=== PATIENT | female | born 1930 | race Caucasian/White ===

== ENCOUNTER 2016-09-22 20:58 | Inpatient (IN) | payer MEDICARE, BC ==
[~2016-09-22] VITALS: Ht 162.6 cm; Wt 54.2 kg
--- NOTE | 2016-09-22 21:00 | NUR ---
Admission Note Patient arrived to unit with family from [facility]. Patient is alert and oriented to self only. Patient is tearful and anxious at this time. Patient is worried about her children and grandchildren. This nurse informed patient that her family is safe and that we need to focus on getting her well so she can go home. Patient responds that she knows her children and grandchildren are adults now and that they can take care of themselves but she cant stop worrying about them. Patient skin assessment shows no wounds or rashes but multiple bruising is present on torso and left thigh and leg (photo taken). Patient compliant with assessment. Patient lung sounds are clear, bowels are active in 4 quadrants and heart is regular. Pulses are palpable bilaterally and skin turgor is elastic. Patient belongings inventoried and documented, valuables sent to safe. Patient remains in her room at this time.
[2016-09-22 21:09] VITALS: BP 185/66
[2016-09-22] MEDS ORDERED: ACETAMINOPHEN 325 MG TABLET PO PRN (21:15)
[2016-09-22] MEDS ORDERED: MAGNESIUM HYDROXIDE 2,400 MG/30 ML ORAL.SUSP. PO PRN (21:15)
[2016-09-22] MEDS ORDERED: METHYL SALICYLATE/MENTHOL TOPICAL OINTMENT 29GM TUBE. TP PRN (21:15)
[2016-09-22] MEDS ORDERED: MAG HYDROX/AL HYDROX/SIMETH 30 ML ORAL.SUSP PO PRN ×2 (21:15→22:15)
[2016-09-22 22:08] LABS: BASO # 0.1 x10^3/uL (0.0-0.2); BASO % 1 % (0-3); EOS # 0.3 x10^3/uL (0.0-0.7); EOS % 5 % (0-3); HEMATOCRIT 28.4 % (36.0-47.0); HEMOGLOBIN 9.7 g/dL (12.0-15.5); LYMPH # 1.3 x10^3/uL (1.0-4.8); LYMPH % 19 % (24-48); MEAN CORPUSCULAR HEMOGLOBIN 32 pg (25-35); MEAN CORPUSCULAR HGB CONC 34 g/dL (31-37); MEAN CORPUSCULAR VOLUME 95 fL (79-100); MONO # 0.6 x10^3/uL (0.0-1.1); MONO % 10 % (0-9); NEUT # 4.5 x10^3uL (1.8-7.7); NEUT % 66 % (31-73); PLATELET COUNT 306 x10^3/uL (140-400); RED CELL DISTRIBUTION WIDTH 13.5 % (11.5-14.5); WHITE BLOOD COUNT 6.8 x10^3/uL (4.0-11.0)
[2016-09-22] MEDS ORDERED: SODI100G DT (22:11)
[2016-09-22] MEDS ORDERED: ATEN25TA PO (22:11)
[2016-09-22] MEDS ORDERED: MAGN2400 PO (22:11)
[2016-09-22] MEDS ORDERED: ALPR0.25 PO (22:11)
[2016-09-22] MEDS ORDERED: LEVO88TA2 PO (22:11)
[2016-09-22] MEDS ORDERED: CALC500T PO (22:11)
[2016-09-22] MEDS ORDERED: MELA3TAB2 PO (22:11)
[2016-09-22] MEDS ORDERED: BISA10SU2 RC (22:11)
[2016-09-22] MEDS ORDERED: POLY17PO3 PO (22:11)
[2016-09-22] MEDS ORDERED: WARF6TAB PO (22:11)
[2016-09-22] MEDS ORDERED: CYCL1DRO OU (22:11)
[2016-09-22] MEDS ORDERED: SODIUM CHLORIDE 5% OU (22:11)
[2016-09-22] MEDS ORDERED: LOSA100T6 PO (22:11)
[2016-09-22] MEDS ORDERED: TRAM50TA PO (22:11)
[2016-09-22] MEDS ORDERED: NITR100C63 PO (22:11)
[2016-09-22] MEDS ORDERED: LACT1CAP21 PO (22:11)
[2016-09-22] MEDS ORDERED: CARB1TAB2 PO (22:11)
[2016-09-22] MEDS ORDERED: MAG355OR12 PO (22:11)
[2016-09-22] MEDS ORDERED: PRAV20TA2 PO (22:11)
[2016-09-22] MEDS ORDERED: ACET-1574 PO (22:11)
[2016-09-22] MEDS ORDERED: PROP10DR3 OU (22:11)
[2016-09-22] MEDS ORDERED: SENN-87 PO (22:11)
[2016-09-22] MEDS ORDERED: ACET500T68 PO (22:11)
[2016-09-22] MEDS ORDERED: FESO4TAB PO (22:11)
[2016-09-22] MEDS ORDERED: CHOL500045 PO (22:11)
[2016-09-22] MEDS ORDERED: CITA40TA5 PO (22:12)
[2016-09-22 22:15] LABS: ALBUMIN 2.8 g/dL (3.4-5.0); ALBUMIN/GLOBULIN RATIO 0.7 (1.0-1.7); CALCIUM 8.7 mg/dL (8.5-10.1); CREATININE 1.3 mg/dL (0.6-1.0); GFR 38.7; MAGNESIUM 1.8 mg/dL (1.8-2.4); POTASSIUM 4.6 mmol/L (3.5-5.1); TOTAL BILIRUBIN 0.6 mg/dL (0.2-1.0); TOTAL PROTEIN 6.6 g/dL (6.4-8.2)
[2016-09-22] MEDS ORDERED: BISACODYL 10 MG SUPP.RECT RC PRN (22:15)
[2016-09-22] MEDS ORDERED: ACETAMINOPHEN 500 MG TABLET PO PRN (22:15)
[2016-09-22] MEDS ORDERED: NON FORMULARY ITEM (Magnesium Hydroxide (Milk Of Magnesia) 2,400 MG) PO PRN (22:15)
[2016-09-22] MEDS ORDERED: CALCIUM CARBONATE 500 MG TAB.CHEW PO PRN (22:15)
[2016-09-22] MEDS ORDERED: traMADol 50 MG TABLET PO PRN (22:15)
[2016-09-22] MEDS ORDERED: NON FORMULARY ITEM (Acetaminophen Er 650 MG) PO PRN (22:15)
[2016-09-22] MEDS ORDERED: POLYVINYL ALCOHOL 1.4% OPHTH SOLUTION 15ML BOTTLE. OU PRN (23:00)
--- NOTE | 2016-09-23 02:51 | NUR ---
Nursing Note Patient complaining of leg pain bilaterally. Patient requesting PRN pain Medication. Patient given PRN Tylenol per PRN order.
[2016-09-23 06:24] VITALS: BP 154/67
[2016-09-23] MEDS: cycloSPORINE 0.05% OPTH 1 DROP DROPERETTE OU SCH ×2 (08:01→19:54)
[2016-09-23] MEDS: LACTOBACILLUS RHAMNOSUS GG 1 CAPSULE. PO SCH (08:01)
[2016-09-23] MEDS: LOSARTAN 50 MG TABLET. PO SCH (08:02)
[2016-09-23] MEDS: CHOLECALCIFEROL (VITAMIN D3) 1,000 UNIT TABLET PO SCH (08:02)
[2016-09-23] MEDS: CARBIDOPA/LEVODOPA 25/100MG TABLET PO SCH ×2 (08:02→19:55)
[2016-09-23] MEDS: OXYBUTYNIN CHLORIDE 5 MG TABLET PO SCH ×2 (08:03→19:54)
[2016-09-23] MEDS: ATENOLOL 25 MG TABLET PO SCH (08:03)
[2016-09-23] MEDS: PRAVASTATIN 20 MG TABLET. PO SCH (08:03)
[2016-09-23] MEDS: LEVOTHYROXINE 88 MCG TABLET PO SCH (08:03)
[2016-09-23] MEDS: NITROFURANTOIN MONOHYD/M-CRYST 100 MG CAPSULE. PO SCH ×2 (08:03→19:54)
--- NOTE | 2016-09-23 08:40 | NUR ---
Behavior Intervention Response and Plan: BIRP Note: Behavior: Assumed Care of patient, patient located in Dining Room at shift change. Patient exhibited the following behavior Disorganized, Anxious, Restless. Brief assessment on rounds of vital signs, medication needs, lab studies, and pain. Treatment plan problems 1 & 2. Intervention: Patient assessed and the following interventions initiated safety checks 15 Minute Checks Cognitive Assessment , Head to toe Assessment , Medications. Response: After interactions and interventions patient responded in the following manner, Calm , Appropriate ,Compliant. Continue to assess behaviors and condition will continue to monitor throughout the shift as needed. Patient educated on ADL's, and hand hygiene. 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 Continue to assess patient for changes in above assessment. Monitor for medication needs, pain, and safety concerns. Hourly rounding performed to ensure safe environment.
[2016-09-23] MEDS ORDERED: CITALOPRAM 20 MG TABLET. PO SCH (09:00)
[2016-09-23] MEDS ORDERED: SODIUM FLUORIDE DT SCH (09:00)
--- NOTE | 2016-09-23 09:10 | NUR ---
THERAPEUTIC RECREATION GROUP NOTE TITLE :Music Bingo ACTIVITY : Music, Cognitive Stimulation GOAL : Increase socialization, elevate mood, stimulate memory, Maintain or improve cognitive functioning DURATION : 60 minutes RESPONSE : Full participation. Pt. was alert and engaged the entire time. She needed assistance finding titles on her card but she placed the bingo chip accurately. She asked for help a couple times. She had tear-filled eyes towards the beginning but played the entire session.
[2016-09-23] MEDS ORDERED: SENN8.6T11 PO (11:22)
--- NOTE | 2016-09-23 13:10 | NUR ---
Patient sitting in day room, she is asking many questions about how long she'll be here, and what's the plan. informed patient that the doctors will be here to evaluate her and form a plan of care, and that most likely she will be here about 10 days. Patient states that she is going to soon, but she is ok with that. Informed her that she is fairly healthy and would not be dying soon. She gave no response to that but asked what the plan was again. Will monitor for behaviours.
[2016-09-23 13:34] LABS: THYROID STIM HORMONE (TSH) 4.737 uIU/mL (0.358-3.740)
[2016-09-23] MEDS: ALPRAZolam 0.25 MG TABLET PO PRN (13:39)
--- NOTE | 2016-09-23 13:39 | NUR ---
Patient is showing signs of increased anxiety, repeatedly asking what she's waiting for, what's going to happen, and stating that she's ready to soon, no suicidal ideations at this time. PRN meds provided per eMAR, will continue to monitor.
--- NOTE | 2016-09-23 14:15 | NUR ---
THERAPEUTIC RECREATION GROUP NOTE TITLE :Accomplishment Coins and Categories ACTIVITY : Leisure Awareness and Values GOAL : Educate on importance of identifying our accomplishments and values in our personal, professional and leisure life. Educate on strategies for coping with change. Educate on benefits of leisure alternatives to address needs of loneliness, self esteem, sense of adventure, altered mood, etc. DURATION : 135 Minutes RESPONSE : Full participation. Pt. participated in the first half of the session. She did not really understand the point of the group and was tearful off and on. She was able to answer questions and list accomplishments in her personal, professional and leisure life with more one on one attention to help her stay focus. She left the group to use the restroom and did not return.
[2016-09-23] MEDS ORDERED: WARFARIN 6 MG TABLET. PO SCH (16:00)
--- NOTE | 2016-09-23 16:15 | NUR ---
Psychosocial Assessment completed w/Pt. in Pt's room. Pt. was born and raised in [place], [place] w/1 brother and 2 sisters. Pt. stated her family was not close, often feeling alienating from family due to her stuttering diagnosis. Pt. completed HS and began working for [employer] where she met her named Andrea. Pt. was for 60+ years until he passed in 2001. Pt. stated their marriage was not a loving marriage and she only stayed because of financial reasons. Pt. had 4 children, although the youngest son named Clifton passed in 2010. Pt. self reports likely suffering from Depression since childhood. Pt. has had no other Psych admits and did not begin seeing a therapist until admit to [facility] 2 years ago. Pt. has a history of making Suicidal Ideation statements, but will even self report she has no plan or no ability to follow thru w/statements. Pt. has no history of alcohol or substance abuse. GOALS: Pt stated, "I just want to feel good again". 1. Family support 2. Willingness to work the program
[2016-09-23 16:29] VITALS: BP 167/73
[2016-09-23 17:09] LABS: T3 TOTAL 57 ng/dL (71-180); THYROXINE 6.6 ug/dL (4.5-12.0)
--- NOTE | 2016-09-23 19:50 | PDOC ---
Exam Kj Demential Exam: Kj Note: Please also refer to the separate dictated note~for this date of service dictated separately.~Patient seen individually. Discussed the patient with Nursing staff reviewed the chart.~Reviewed interim history and current functioning. Reviewed vital signs,~Labs/ Radiology~and current medications noted below. Continue current treatment with the changes noted in the dictated addendum note Assessment: Vital Signs: Vital Signs Date Time Temp Pulse Resp B/P (MAP) Pulse Ox O2 Delivery O2 Flow Rate FiO2 09/23/16 16:29 97.9 60 20 167/73 (104) 99 Labs: Laboratory Tests Test 09/22/16 21:45 09/23/16 07:02 White Blood Count 6.8 x10^3/uL (4.0-11.0) Red Blood Count 3.00 x10^6/uL (3.50-5.40) L Hemoglobin 9.7 g/dL (12.0-15.5) L Hematocrit 28.4 % (36.0-47.0) L Mean Corpuscular Volume 95 fL (79-100) Mean Corpuscular Hemoglobin 32 pg (25-35) Mean Corpuscular Hemoglobin Concent 34 g/dL (31-37) Red Cell Distribution Width 13.5 % (11.5-14.5) Platelet Count 306 x10^3/uL (140-400) Neutrophils (%) (Auto) 66 % (31-73) Lymphocytes (%) (Auto) 19 % (24-48) L Monocytes (%) (Auto) 10 % (0-9) H Eosinophils (%) (Auto) 5 % (0-3) H Basophils (%) (Auto) 1 % (0-3) Neutrophils # (Auto) 4.5 x10^3uL (1.8-7.7) Lymphocytes # (Auto) 1.3 x10^3/uL (1.0-4.8) Monocytes # (Auto) 0.6 x10^3/uL (0.0-1.1) Eosinophils # (Auto) 0.3 x10^3/uL (0.0-0.7) Basophils # (Auto) 0.1 x10^3/uL (0.0-0.2) Sodium Level 135 mmol/L (136-145) L Potassium Level 4.6 mmol/L (3.5-5.1) Chloride Level 102 mmol/L (98-107) Carbon Dioxide Level 26 mmol/L (21-32) Anion Gap 7 (6-14) Blood Urea Nitrogen 28 mg/dL (7-20) H Creatinine 1.3 mg/dL (0.6-1.0) H Estimated GFR (Cockcroft-Gault) 38.7 BUN/Creatinine Ratio 22 (6-20) H Glucose Level 90 mg/dL (70-99) Calcium Level 8.7 mg/dL (8.5-10.1) Magnesium Level 1.8 mg/dL (1.8-2.4) Iron Level 67 ug/dL (50-170) Total Iron Binding Capacity 270 ug/dL (250-450) Iron Saturation 25 % (15-34) Total Bilirubin 0.6 mg/dL (0.2-1.0) Aspartate Amino Transferase (AST) 24 U/L (15-37) Alanine Aminotransferase (ALT) 12 U/L (14-59) L Alkaline Phosphatase 115 U/L (46-116) Total Protein 6.6 g/dL (6.4-8.2) Albumin 2.8 g/dL (3.4-5.0) L Albumin/Globulin Ratio 0.7 (1.0-1.7) L Triglycerides Level 142 mg/dL (0-150) Cholesterol Level 179 mg/dL (0-200) LDL Cholesterol, Calculated 96 mg/dL (0-100) VLDL Cholesterol, Calculated 28 mg/dL (0-40) Non-HDL Cholesterol Calculated 124 mg/dL (0-129) HDL Cholesterol 55 mg/dL (40-60) Cholesterol/HDL Ratio 3.0 25-Hydroxy Vitamin D Total Pending Thyroid Stimulating Hormone (TSH) 4.737 uIU/mL (0.358-3.740) Thyroxine (T4) 6.6 ug/dL (4.5-12.0) Total Triiodothyronine (TT3) 57 ng/dL (71-180) L RPR Titer Additional Testing Pending Prothrombin Time 36.8 SEC (9.4-11.4) H Prothrombin Time INR 3.6 (0.9-1.1) H Current Medications: Meds: Current Medications Acetaminophen (Tylenol) 650 mg PRN Q6HRS PRN PO PAIN / TEMP Last administered on 09/23/16 02:46; Start 09/22/16 at 21:15 Multi-Ingredient Ointment (Analgesic Formoso) 1 toney PRN QID PRN TP MUSCLE PAIN; Start 09/22/16 at 21:15 Al Hydroxide/Mg Hydroxide (Mylanta Plus Xs) 15 ml PRN AFTMEALHC PRN PO DYSPEPSIA; Start 09/22/16 at 21:15; Status Cancel Magnesium Hydroxide (Milk Of Magnesia) 2,400 mg PRN QHS PRN PO CONSTIPATION; Start 09/22/16 at 21:15 Alprazolam (Xanax) 0.25 mg PRN TID PRN PO ANXIETY / AGITATION Last administered on 09/23/16 13:39; Start 09/22/16 at 22:15 Citalopram Hydrobromide (CeleXA) 40 mg DAILY PO Last administered on 09/23/16 08:02; Start 09/23/16 at 09:00; Stop 09/23/16 at 18:27; Status DC Acetaminophen (Tylenol) 500 mg PRN TID PRN PO PAIN / TEMP; Start 09/22/16 at 22 :15 Atenolol (Tenormin) 25 mg DAILY PO Last administered on 09/23/16 08:03; Start 09/23/16 at 09:00 Bisacodyl (Dulcolax Supp) 10 mg PRN DAILY PRN RC CONSTIPATION; Start 09/22/16 at 22:15 Calcium Carbonate/ Glycine (Tums) 500 mg PRN TID PRN PO HEARTBURN / GAS; Start 09/22/16 at 22:15 Carbidopa/Levodopa (Sinemet 25/100) 1 tab BID PO Last administered on 08:02; Start 09/23/16 at 09:00 Cyclosporine (Restasis) 1 drop BID OU Last administered on 09/23/16 08:01; Start 09/23/16 at 09:00 Levothyroxine Sodium (Synthroid) 88 mcg DAILYAC PO Last administered on 08:03; Start 09/23/16 at 07:30 Al Hydroxide/Mg Hydroxide (Mylanta Plus Xs) 15 ml PRN TID PRN PO INDIGESTION; Start 09/22/16 at 22:15 Polyethylene Glycol (miraLAX) 8.5 gm HS PO ; Start 09/23/16 at 21:00 Pravastatin Sodium (Pravachol) 20 mg DAILY PO Last administered on 09/23/16 08 :03; Start 09/23/16 at 09:00 Sennosides (Senna) 8.6 mg HS PO ; Start 09/23/16 at 21:00 Tramadol HCl (Ultram) 50 mg PRN Q6HRS PRN PO PAIN; Start 09/22/16 at 22:15 Warfarin Sodium (Coumadin) 6 mg DAILY16 PO ; Start 09/23/16 at 16:00; Stop 09/23 at 16:14; Status DC Non-Formulary Medication 650 mg PRN TID PRN PO PAIN / TEMP; Start 09/22/16 at 22:15; Status UNV Vitamin D (Vitamin D3) 5,000 unit DAILY PO Last administered on 09/23/16 08:02 ; Start 09/23/16 at 09:00 Oxybutynin Chloride (Ditropan) 5 mg BID PO Last administered on 09/23/16 08:03 ; Start 09/23/16 at 09:00 Lactobacillus Rhamnosus (Culturelle) 1 cap DAILY PO Last administered on 08:01; Start 09/23/16 at 09:00; Stop 09/24/16 at 10:00 Losartan Potassium (Cozaar) 100 mg DAILY PO Last administered on 09/23/16 08: 02; Start 09/23/16 at 09:00 Non-Formulary Medication 2,400 mg PRN DAILY PRN PO CONSTIPATION; Start at 22:15; Status UNV Melatonin 3 mg HS PO ; Start 09/23/16 at 21:00 Nitrofurantoin Macrocrystals (Macrobid) 100 mg BID PO Last administered on 09/23 08:03; Start 09/23/16 at 09:00; Stop 09/25/16 at 22:00 Artificial Tears (Artificial Tears) 1 drop PRN Q4HRS PRN OU DRY EYE; Start at 23:00 Non-Formulary Medication 1 toney DAILY DT ; Start 09/23/16 at 09:00; Status UNV Sodium Chloride (Kelly) 0.25 inch HS OU ; Start 09/23/16 at 21:00 Warfarin Sodium (Coumadin Per Physician) 1 each PRN DAILY PRN MC SEE COMMENTS; Start 09/22/16 at 23:00 Duloxetine HCl (Cymbalta) 30 mg DAILY PO ; Start 09/24/16 at 09:00 Mirtazapine (Remeron) 7.5 mg QHS PO ; Start 09/23/16 at 21:00 Active Scripts Active Reported Citalopram Hbr (Citalopram Hydrobromide) 40 Mg Tablet 40 Mg PO DAILY Xanax (Alprazolam) 0.25 Mg Tablet 0.25 Mg PO PRN TID PRN Macrodantin (Nitrofurantoin Macrocrystal) 100 Mg Capsule 100 Mg PO BID 3 Days Culturelle (Lactobacillus Rhamnosus Gg) 1 Each Capsule 1 Each PO DAILY 2 Days Acetaminophen Er (Acetaminophen) 650 Mg Tablet.er 650 Mg PO PRN TID PRN Toviaz (Fesoterodine Fumarate) 4 Mg Tab.er.24h 4 Mg PO DAILY Systane Ultra 0.4-0.3% Eye Drp (Propylene Glycol/Peg 400) 10 Ml Drops 1 Drop OU PRN Q4HRS PRN Bisacodyl 10 Mg Supp.rect 10 Mg RC PRN DAILY PRN Coumadin (Warfarin Sodium) 6 Mg Tablet 6 Mg PO DAILY Senna Lax (Sennosides) 8.6 Mg Tablet 8.6 Mg PO HS Polyethylene Glycol 3350 17 Gm Powd.pack 0.5 Packet PO HS PRN Maalox Maximum Strength Susp (Mag Hydrox/Al Hydrox/Simeth) 355 Ml Oral.susp 15 Ml PO PRN TID PRN Acetaminophen 500 Mg Tablet 500 Mg PO PRN TID PRN Tramadol Hcl (Tramadol HCl) 50 Mg Tablet 50 Mg PO PRN Q6HRS PRN Synthroid (Levothyroxine Sodium) 88 Mcg Tablet 88 Mcg PO DAILYAC Melatonin 3 Mg Tablet 3 Mg PO HS Prevident 5000 (Sodium Fluoride) 100 Ml Gel..ml. 1 Toney DT DAILY Calcium Carbonate 500 Mg Tablet 500 Mg PO PRN TID PRN Milk Of Magnesia (Magnesium Hydroxide) 2,400 Mg/10 Ml Oral.susp 2,400 Mg PO PRN DAILY PRN Restasis (Cyclosporine) 1 Each Droperette 1 Each OU BID Losartan Potassium 100 Mg Tablet 100 Mg PO DAILY Sinemet 25-100 Mg Tablet (Carbidopa/Levodopa) 1 Each Tablet 1 Each PO BID Vitamin D (Cholecalciferol (Vitamin D3)) 5,000 Unit Tablet 5,000 Unit PO DAILY [sodium chloride 5%] Oint..gm. 1 Toney OU HS Pravastatin Sodium 20 Mg Tablet 20 Mg PO DAILY Atenolol 25 Mg Tablet 25 Mg PO DAILY ARIANE WASHBURN MD Sep 23, 2016 19:50
[2016-09-23] MEDS: SODIUM CHLORIDE 5% OPHTH OINTMENT 3.5GM TUBE. OU SCH (19:54)
[2016-09-23] MEDS: SENNOSIDES 8.6 MG TABLET PO SCH (19:57)
[2016-09-23] MEDS: MELATONIN 3 MG TABLET PO SCH (19:57)
[2016-09-23] MEDS: POLYETHYLENE GLYCOL 3350 17 GM PACKET. PO SCH (19:57)
[2016-09-23] MEDS: MIRTAZAPINE 7.5 MG TABLET. PO SCH (19:57)
[2016-09-23 23:40] VITALS: BP 180/78
[2016-09-24 00:13] VITALS: BP 110/68
--- NOTE | 2016-09-24 00:16 | HP ---
ADMIT DATE: 09/23/2016 PSYCHIATRIC ADMISSION HISTORY AND EVALUATION This note covers elements not covered in my initial note of 09/23/2016. IDENTIFYING DATA: The patient is an 85-year-old female referred to us from [facility] in [place], [place] by Dr. Christian Elliott, her psychiatrist and Dr. Galicia, her primary care physician on account of worsening symptoms of depression, paranoia, anxiety. Reportedly, the patient was scared to be left alone, had uncontrollable crying, making repeated statements of wanting to and to kill herself. No plans or attempts were noted, however. She had been placed on one-on-one status to prevent her hurting herself at the facility. On 09/20/2016, she was sent to [facility], found to be medically stable, treated on Xanax, returned back to the facility. Symptoms only worsened. There were concerns about her safety at the facility requiring one-on-one status and then referral to us for inpatient psychiatric stabilization. CHIEF COMPLAINT: "I have been very depressed. I have had multiple people in my family . Nothing is going to get better. I feel hopeless." HISTORY OF PRESENT ILLNESS: The patient has a history of significant worsening of depression, paranoia, anxiety, and uncontrollable crying as noted above. She has been extremely anxious and cannot be left alone, making suicidal statements, but no plan or attempts have been noted. No clear history of bipolar disorder. She has had some short term memory deficits. PAST PSYCHIATRIC HISTORY: As above. PAST MEDICAL HISTORY: Parkinson's disease, chronic kidney disease, and atrial fibrillation, coronary artery disease, pacemaker, hypertension, vascular dementia. CODE STATUS: DNR. ALLERGIES: CIPRO, SULFA. DIET: Regular. Takes her medications . Ambulates with single assistance with a walker. CURRENT PSYCHOTROPICS: Xanax 0.25 mg q.8 hours p.r.n. anxiety and Celexa 40 mg a day. SOCIAL HISTORY: No history of alcohol, drug abuse, physical, sexual or elder abuse. She is not known to be a perpetrator. MENTAL STATUS EXAMINATION: The patient was seen individually on evening of 09/23/2016 for this evaluation. She is oriented to herself and situation, knew she arrived here last evening, confused about the date. Speech is coherent. Thought processes are goal directed. Mood is depressed. Affect is mood congruent. She is somewhat paranoid, suspicious. Attention span short. Language function intact. She denies active suicidal ideation, but admits to feeling hopeless, helpless, worthless, wanting to . LABORATORY DATA: Reviewed. REVIEW OF SYSTEMS: Ambulation impaired. No CV, , pulmonary, eye, ENT system symptoms on review. IMPRESSION: Major depressive disorder, recurrent, severe with psychotic features; anxiety disorder, unspecified; impulse control disorder, unspecified. Rest diagnosis as above including mild cognitive impairment versus major neurocognitive disorder, vascular with depression, delusions. TREATMENT PLAN: Admit to the geropsychiatry unit at [facility]. I will see the patient daily individually from a psychiatric standpoint. Medical followup will be requested Dr. Vizcaino/Dr. Javed. We will observe the patient's baseline. She is on Celexa 40 mg a day. At her age, this does not seem appropriate consequent to cardiac side effects. We will change the Celexa to Cymbalta 30 mg a day. She slept very poorly previous evening. We will start Remeron 7.5 mg at bedtime with a plan to increase the Cymbalta and to consider Seroquel to augment the Cymbalta and as an atypical antipsychotic. MAN Ruben WASHBURN MD DR: MARCIAL/reynaldo JOB#: [id number] / [id number]
[2016-09-24 04:13] LABS: HEMOGLOBIN A1C 5.5 % (4.8-5.6)
--- NOTE | 2016-09-24 04:53 | NUR ---
Behavior Intervention Response and Plan: BIRP Note: Behavior: Assumed Care of patient, patient located in Hallway at shift change. Patient exhibited the following behavior Restless, Disorganized, Anxious. Brief assessment on rounds of vital signs, medication needs, lab studies, and pain. Treatment plan problems 1-2. Intervention: Patient assessed and the following interventions initiated safety checks 15 Minute Checks Cognitive Assessment , Medications , Oral Hydration. Response: After interactions and interventions patient responded in the following manner, Disorganized , Compliant ,Cooperative. Continue to assess behaviors and condition will continue to monitor throughout the shift as needed. Patient educated on ADL's, and hand hygiene. Plan: Continue to monitor Master Treatment Plan for patient's progress toward short term goals of Decreased Agitation, Decreased Anxiety, mcc goals to return to previous living setting vs placement. Continue to assess patient for changes in above assessment. Monitor for medication needs, pain, and safety concerns. Hourly rounding performed to ensure safe environment.
[2016-09-24 05:51] VITALS: BP 138/78
[2016-09-24] MEDS: LEVOTHYROXINE 88 MCG TABLET PO SCH (07:59)
[2016-09-24] MEDS: LOSARTAN 50 MG TABLET. PO SCH (07:59)
[2016-09-24] MEDS: NITROFURANTOIN MONOHYD/M-CRYST 100 MG CAPSULE. PO SCH ×2 (07:59→19:26)
[2016-09-24] MEDS: OXYBUTYNIN CHLORIDE 5 MG TABLET PO SCH ×2 (08:00→19:26)
[2016-09-24] MEDS: cycloSPORINE 0.05% OPTH 1 DROP DROPERETTE OU SCH ×2 (08:00→19:26)
[2016-09-24] MEDS: PRAVASTATIN 20 MG TABLET. PO SCH (08:00)
[2016-09-24] MEDS: CARBIDOPA/LEVODOPA 25/100MG TABLET PO SCH ×2 (08:00→19:26)
[2016-09-24] MEDS: CHOLECALCIFEROL (VITAMIN D3) 1,000 UNIT TABLET PO SCH (08:00)
[2016-09-24] MEDS: ATENOLOL 25 MG TABLET PO SCH (08:00)
[2016-09-24] MEDS: LACTOBACILLUS RHAMNOSUS GG 1 CAPSULE. PO SCH (08:03)
[2016-09-24] MEDS: DULoxetine HCL 30 MG CAPSULE.DR PO SCH (08:03)
--- NOTE | 2016-09-24 09:45 | NUR ---
Behavior Intervention Response and Plan: BIRP Note: Behavior: Assumed Care of patient, patient located in Patient Room at shift change. Patient exhibited the following behavior Anxious, Disorganized, Interactive. Brief assessment on rounds of vital signs, medication needs, lab studies, and pain. Treatment plan problems 1 & 2. Intervention: Patient assessed and the following interventions initiated safety checks 15 Minute Checks Cognitive Assessment , Head to toe Assessment , Medications. Response: After interactions and interventions patient responded in the following manner, Calm , Appropriate ,Compliant. Continue to assess behaviors and condition will continue to monitor throughout the shift as needed. Patient educated on ADL's, and hand hygiene. 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 Continue to assess patient for changes in above assessment. Monitor for medication needs, pain, and safety concerns. Hourly rounding performed to ensure safe environment.
--- NOTE | 2016-09-24 12:32 | CONS ---
DATE OF CONSULTATION: 09/23/2016 REASON FOR CONSULTATION: Medical management. HISTORY OF PRESENT ILLNESS: The patient is an 85-year-old female patient, resident at [facility], who was admitted with a complaint of severe depression, paranoia, anxiety, stated that she is feeling lonely, scared to be left alone, uncontrollable crying, all this in a background of major depressive disorder. She is here for inpatient psychiatric stabilization. On questioning her about from feeling depressed and lonely, denied any other complaint. PAST MEDICAL HISTORY: Significant for Parkinson's disease, chronic kidney disease, atrial fibrillation, coronary artery disease, hypertension, vascular dementia and major depressive disorder. PAST SURGICAL HISTORY: Significant for pacemaker placement, bilateral cataract extraction. ALLERGIES: She is allergic to SULFA and CIPROFLOXACIN. MEDICATIONS: She is currently on following medications: Acetaminophen 500 mg 3 times a day, acetaminophen 650 mg 3 times a day as needed, alprazolam 0.25 mg 3 times a day, atenolol 25 mg daily, bisacodyl 10 mg suppositories daily, calcium carbonate 500 mg 3 times a day, carbidopa/levodopa 25/100 one tablet twice a day, cholecalciferol 5000 international units once a day, citalopram hydrobromide 40 mg daily, cyclosporine for Restasis 1 drop to both eyes twice a day, Toviaz 4 mg daily for bladder spasm, lactobacillus rhamnosus 1 p.o. daily, levothyroxine sodium 88 mcg tablet once a day, losartan potassium 100 mg once a day, Maalox 15 mL 3 times a day as needed, milk of magnesia 30 mL p.o. daily p.r.n. for constipation, melatonin 3 mg at bedtime for insomnia. She is on Macrodantin 100 mg p.o. b.i.d. for 3 days, polyethylene glycol 17 grams daily p.r.n. for constipation, pravastatin 20 mg daily, propylene glycol for Systane Ultra eyedrops 1 drop to both eyes every 4 hours, senna 1 tablet at bedtime, 5000 one application daily, tramadol 50 mg every 6 hours and warfarin 6 mg daily. REVIEW OF SYSTEMS: As per history of present illness. PHYSICAL EXAMINATION GENERAL: When I examined her, she was sitting comfortably in her chair, in no apparent distress. She was slightly pale, but no jaundice, cyanosis or thyromegaly. No jugular venous distention. No limb edema. VITAL SIGNS: Heart rate 60, blood pressure was 154/67, temperature was 97.5, respiratory rate was 18 and oxygen saturation was 99% on room air. HEAD, EYES, EARS, NOSE AND THROAT: Showed normocephalic, atraumatic. NECK: Supple. HEART: Showed normal first and second heart sounds with no gallop, rub or murmur. CHEST: Clear to auscultation. No crepitation or rhonchi. ABDOMEN: Distended, soft, nontender. NEUROLOGIC: She was awake, alert, somewhat confused; however, without any lateralizing sign. All her cranial nerves intact. EXTREMITIES: She moves extremities without difficulty. She ambulates with a walker. LABORATORY DATA: Showed a serum sodium 135, potassium 4.6, chloride 102, bicarbonate 26, anion gap of 7, BUN 28, creatinine 1.3, estimated GFR was 39 mL per minute. Her glucose 90, calcium was 8.7, magnesium was 1.8. Serum iron was 67, TIBC was 270 and percent saturation was 25%. Her total bilirubin was 0.6. AST, ALT, alkaline phosphatase were normal. Total protein was 6.6, albumin 2.8. Serum triglycerides were 142. Total cholesterol 179, LDL was 96, VLDL was 28, and HDL was 55. Cholesterol to HDL cholesterol ratio was 3. TSH was slightly high at 4.737. Her white cell count was 9600, hemoglobin 9.7, hematocrit 28.4, MCV 95 and platelet count 306,000. Her prothrombin time was 36.8, INR of 3.6. IMPRESSION: In summary, this is an 85-year-old female patient, a resident at [facility], who was admitted on the basis of severe depression, paranoia, anxiety, scared to be left alone, uncontrollable crying, all this in a background of major depressive disorder. She has multiple medical problems including Parkinson's disease, chronic kidney disease, AFib, coronary artery disease, hypertension. She has had pacemaker placed. She is on Coumadin and INR is supratherapeutic at 6.8 and 3.6. Her BUN was 28, creatinine 1.3, and estimated GFR was 38 mL per minute. She has normochromic normocytic anemia with hemoglobin 9.7, hematocrit 28.4. She is also known to have hypothyroidism, hyperlipidemia. Her vital signs are mostly stable. All in all, she seemed to be medically stable. I will continue on all these medications for the time being. I will follow all her labs that are still pending and make any necessary recommendations. Thank you, Dr. Braun for allowing me to participate in the care of this patient. RUSSELL TORRES MD DR: ROXY/reynaldo JOB#: [id number] / [id number]
--- NOTE | 2016-09-24 13:00 | NUR ---
SW spoke w/PT's son/DPOA, Mahendra to verify PSA information obtained and to learn more about MH history. Mahendra confirmed Pt. has not had previous admits to a Psych facility. Pt. has struggled w/depression and has made suicidal ideation type comments, but has never expressed a plan or attempted to carry out the thoughts. Family hired Private Therapist, Fidelia Bertrand at [phone] in [place] to go to [facility] and meet w/Pt. at least monthly. Pt. also receives Psych services from Psychiatrist Dr. Dozier. Mahendra states there is not a significant trigger to help explain the current "tail spin" Pt. has been in for the past 2 weeks. They initially thought it may be related to an UTI, but upon admit to [facility], test was negative.
[2016-09-24 16:10] VITALS: BP 161/65
--- NOTE | 2016-09-24 18:00 | NUR ---
THERAPEUTIC RECREATION GROUP NOTE TITLE :Gwendolyn Fuller- LED/REPORTED by CNAs ACTIVITY : Activities and Games GOAL : Increase alertness, focus, morale, decrease stress DURATION : 35 Minutes RESPONSE : No participation.
[2016-09-24] MEDS: MIRTAZAPINE 7.5 MG TABLET. PO SCH (19:25)
[2016-09-24] MEDS: SENNOSIDES 8.6 MG TABLET PO SCH (19:25)
[2016-09-24] MEDS: MELATONIN 3 MG TABLET PO SCH (19:25)
[2016-09-24] MEDS: POLYETHYLENE GLYCOL 3350 17 GM PACKET. PO SCH (19:26)
[2016-09-24] MEDS: SODIUM CHLORIDE 5% OPHTH OINTMENT 3.5GM TUBE. OU SCH (19:27)
--- NOTE | 2016-09-24 19:50 | PDOC ---
Exam Kj Demential Exam: Kj Note: Please also refer to the separate dictated note~for this date of service dictated separately.~Patient seen individually. Discussed the patient with Nursing staff reviewed the chart.~Reviewed interim history and current functioning. Reviewed vital signs,~Labs/ Radiology~and current medications noted below. Continue current treatment with the changes noted in the dictated addendum note Assessment: Vital Signs: Vital Signs Date Time Temp Pulse Resp B/P (MAP) Pulse Ox O2 Delivery O2 Flow Rate FiO2 09/24/16 16:10 98.3 60 20 161/65 (97) 97 I&O Intake and Output 09/24/16 07:00 Intake Total 960 ml Balance 960 ml Intake Oral 960 ml # Voids 1 # Bowel Movements 2 Labs: Laboratory Tests Test 09/24/16 07:43 Prothrombin Time 29.2 SEC (9.4-11.4) H Prothrombin Time INR 2.8 (0.9-1.1) H Current Medications: Meds: Current Medications Acetaminophen (Tylenol) 650 mg PRN Q6HRS PRN PO PAIN / TEMP Last administered on 09/23/16 02:46; Start 09/22/16 at 21:15 Multi-Ingredient Ointment (Analgesic [place]) 1 toney PRN QID PRN TP MUSCLE PAIN; Start 09/22/16 at 21:15 Al Hydroxide/Mg Hydroxide (Mylanta Plus Xs) 15 ml PRN AFTMEALHC PRN PO DYSPEPSIA; Start 09/22/16 at 21:15; Status Cancel Magnesium Hydroxide (Milk Of Magnesia) 2,400 mg PRN QHS PRN PO CONSTIPATION; Start 09/22/16 at 21:15 Alprazolam (Xanax) 0.25 mg PRN TID PRN PO ANXIETY / AGITATION Last administered on 09/23/16 13:39; Start 09/22/16 at 22:15 Citalopram Hydrobromide (CeleXA) 40 mg DAILY PO Last administered on 09/23/16 08:02; Start 09/23/16 at 09:00; Stop 09/23/16 at 18:27; Status DC Acetaminophen (Tylenol) 500 mg PRN TID PRN PO PAIN / TEMP; Start 09/22/16 at 22 :15 Atenolol (Tenormin) 25 mg DAILY PO Last administered on 09/24/16 08:00; Start 09/23/16 at 09:00 Bisacodyl (Dulcolax Supp) 10 mg PRN DAILY PRN RC CONSTIPATION; Start 09/22/16 at 22:15 Calcium Carbonate/ Glycine (Tums) 500 mg PRN TID PRN PO HEARTBURN / GAS; Start 09/22/16 at 22:15 Carbidopa/Levodopa (Sinemet 25/100) 1 tab BID PO Last administered on 19:26; Start 09/23/16 at 09:00 Cyclosporine (Restasis) 1 drop BID OU Last administered on 09/24/16 19:26; Start 09/23/16 at 09:00 Levothyroxine Sodium (Synthroid) 88 mcg DAILYAC PO Last administered on 07:59; Start 09/23/16 at 07:30 Al Hydroxide/Mg Hydroxide (Mylanta Plus Xs) 15 ml PRN TID PRN PO INDIGESTION; Start 09/22/16 at 22:15 Polyethylene Glycol (miraLAX) 8.5 gm HS PO Last administered on 09/24/16 19:26 ; Start 09/23/16 at 21:00 Pravastatin Sodium (Pravachol) 20 mg DAILY PO Last administered on 09/24/16 08 :00; Start 09/23/16 at 09:00 Sennosides (Senna) 8.6 mg HS PO Last administered on 09/24/16 19:25; Start at 21:00 Tramadol HCl (Ultram) 50 mg PRN Q6HRS PRN PO PAIN; Start 09/22/16 at 22:15 Warfarin Sodium (Coumadin) 6 mg DAILY16 PO ; Start 09/23/16 at 16:00; Stop 09/23 at 16:14; Status DC Non-Formulary Medication 650 mg PRN TID PRN PO PAIN / TEMP; Start 09/22/16 at 22:15; Status UNV Vitamin D (Vitamin D3) 5,000 unit DAILY PO Last administered on 09/24/16 08:00 ; Start 09/23/16 at 09:00 Oxybutynin Chloride (Ditropan) 5 mg BID PO Last administered on 09/24/16 19:26 ; Start 09/23/16 at 09:00 Lactobacillus Rhamnosus (Culturelle) 1 cap DAILY PO Last administered on 08:03; Start 09/23/16 at 09:00; Stop 09/24/16 at 10:00; Status DC Losartan Potassium (Cozaar) 100 mg DAILY PO Last administered on 09/24/16 07: 59; Start 09/23/16 at 09:00 Non-Formulary Medication 2,400 mg PRN DAILY PRN PO CONSTIPATION; Start at 22:15; Status UNV Melatonin 3 mg HS PO Last administered on 09/24/16 19:25; Start 09/23/16 at 21 :00 Nitrofurantoin Macrocrystals (Macrobid) 100 mg BID PO Last administered on 09/24 19:26; Start 09/23/16 at 09:00; Stop 09/25/16 at 22:00 Artificial Tears (Artificial Tears) 1 drop PRN Q4HRS PRN OU DRY EYE; Start at 23:00 Non-Formulary Medication 1 toney DAILY DT ; Start 09/23/16 at 09:00; Status UNV Sodium Chloride (Kelly) 0.25 inch HS OU Last administered on 09/24/16 19:27; Start 09/23/16 at 21:00 Warfarin Sodium (Coumadin Per Physician) 1 each PRN DAILY PRN MC SEE COMMENTS; Start 09/22/16 at 23:00 Duloxetine HCl (Cymbalta) 30 mg DAILY PO Last administered on 09/24/16 08:03; Start 09/24/16 at 09:00 Mirtazapine (Remeron) 7.5 mg QHS PO Last administered on 09/24/16 19:25; Start 09/23/16 at 21:00 Active Scripts Active Reported Citalopram Hbr (Citalopram Hydrobromide) 40 Mg Tablet 40 Mg PO DAILY Xanax (Alprazolam) 0.25 Mg Tablet 0.25 Mg PO PRN TID PRN Macrodantin (Nitrofurantoin Macrocrystal) 100 Mg Capsule 100 Mg PO BID 3 Days Culturelle (Lactobacillus Rhamnosus Gg) 1 Each Capsule 1 Each PO DAILY 2 Days Acetaminophen Er (Acetaminophen) 650 Mg Tablet.er 650 Mg PO PRN TID PRN Toviaz (Fesoterodine Fumarate) 4 Mg Tab.er.24h 4 Mg PO DAILY Systane Ultra 0.4-0.3% Eye Drp (Propylene Glycol/Peg 400) 10 Ml Drops 1 Drop OU PRN Q4HRS PRN Bisacodyl 10 Mg Supp.rect 10 Mg RC PRN DAILY PRN Coumadin (Warfarin Sodium) 6 Mg Tablet 6 Mg PO DAILY Senna Lax (Sennosides) 8.6 Mg Tablet 8.6 Mg PO HS Polyethylene Glycol 3350 17 Gm Powd.pack 0.5 Packet PO HS PRN Maalox Maximum Strength Susp (Mag Hydrox/Al Hydrox/Simeth) 355 Ml Oral.susp 15 Ml PO PRN TID PRN Acetaminophen 500 Mg Tablet 500 Mg PO PRN TID PRN Tramadol Hcl (Tramadol HCl) 50 Mg Tablet 50 Mg PO PRN Q6HRS PRN Synthroid (Levothyroxine Sodium) 88 Mcg Tablet 88 Mcg PO DAILYAC Melatonin 3 Mg Tablet 3 Mg PO HS Prevident 5000 (Sodium Fluoride) 100 Ml Gel..ml. 1 Toney DT DAILY Calcium Carbonate 500 Mg Tablet 500 Mg PO PRN TID PRN Milk Of Magnesia (Magnesium Hydroxide) 2,400 Mg/10 Ml Oral.susp 2,400 Mg PO PRN DAILY PRN Restasis (Cyclosporine) 1 Each Droperette 1 Each OU BID Losartan Potassium 100 Mg Tablet 100 Mg PO DAILY Sinemet 25-100 Mg Tablet (Carbidopa/Levodopa) 1 Each Tablet 1 Each PO BID Vitamin D (Cholecalciferol (Vitamin D3)) 5,000 Unit Tablet 5,000 Unit PO DAILY [sodium chloride 5%] Oint..gm. 1 Toney OU HS Pravastatin Sodium 20 Mg Tablet 20 Mg PO DAILY Atenolol 25 Mg Tablet 25 Mg PO DAILY Diagnosis: Problems: (1) Anxiety disorder (2) Dementia, vascular, with depression (3) Psychotic depression (4) Major depressive disorder, recurrent episode (5) Impulse control disorder ARIANE WASHBURN MD Sep 24, 2016 19:50
--- NOTE | 2016-09-24 22:21 | NUR ---
Behavior Intervention Response and Plan: BIRP Note: Behavior: Assumed Care of patient, patient located in Patient Room at shift change. Patient exhibited the following behavior Calm, Compliant, Cooperative. Brief assessment on rounds of vital signs, medication needs, lab studies, and pain. Treatment plan problems Altered thought process and fall risk. Intervention: Patient assessed and the following interventions initiated safety checks 15 Minute Checks Cognitive Assessment , Medications , Oral Hydration. Response: After interactions and interventions patient responded in the following manner, Calm , Compliant ,Cooperative. Continue to assess behaviors and condition will continue to monitor throughout the shift as needed. Patient educated on ADL's, and hand hygiene. Plan: Continue to monitor Master Treatment Plan for patient's progress toward short term goals of Decreased Agitation, Medication Compliance, correction goals to return to previous living setting vs placement. Continue to assess patient for changes in above assessment. Monitor for medication needs, pain, and safety concerns. Hourly rounding performed to ensure safe environment.
[2016-09-25 05:16] LABS: BILIRUBIN,URINE NEG (NEG); CLARITY,URINE CLEAR; COLOR,URINE YELLOW; GLUCOSE,URINE NEG (NEG); NITRITE,URINE NEG (NEG); RBC,URINE 0 /HPF (0-2); UROBILINOGEN,URINE 0.2 mg/dL (0.2 mg/dL); WBC,URINE OCC /HPF (0-4)
[2016-09-25 05:17] LABS: BACTERIA,URINE FEW /HPF (0-FEW); SQUAMOUS EPITHELIAL CELL,UR FEW /LPF
[2016-09-25] MEDS: LEVOTHYROXINE 88 MCG TABLET PO SCH (05:48)
[2016-09-25 06:07] VITALS: BP 176/70
[2016-09-25] MEDS: DULoxetine HCL 30 MG CAPSULE.DR PO SCH (08:03)
[2016-09-25] MEDS: cycloSPORINE 0.05% OPTH 1 DROP DROPERETTE OU SCH ×2 (08:03→19:41)
[2016-09-25] MEDS: CHOLECALCIFEROL (VITAMIN D3) 1,000 UNIT TABLET PO SCH (08:03)
[2016-09-25] MEDS: NITROFURANTOIN MONOHYD/M-CRYST 100 MG CAPSULE. PO SCH ×2 (08:03→19:40)
[2016-09-25] MEDS: ATENOLOL 25 MG TABLET PO SCH (08:04)
[2016-09-25] MEDS: LOSARTAN 50 MG TABLET. PO SCH (08:04)
[2016-09-25] MEDS: CARBIDOPA/LEVODOPA 25/100MG TABLET PO SCH ×2 (08:04→19:40)
[2016-09-25] MEDS: PRAVASTATIN 20 MG TABLET. PO SCH (08:05)
[2016-09-25] MEDS: OXYBUTYNIN CHLORIDE 5 MG TABLET PO SCH ×2 (08:05→19:40)
--- NOTE | 2016-09-25 09:00 | NUR ---
Behavior Intervention Response and Plan: BIRP Note: Behavior: Assumed Care of patient, patient located in Dining Room at shift change. Patient exhibited the following behavior Restless, Disorganized, Anxious. Brief assessment on rounds of vital signs, medication needs, lab studies, and pain. Treatment plan problems 1 & 2. Intervention: Patient assessed and the following interventions initiated safety checks 15 Minute Checks Cognitive Assessment , Head to toe Assessment , Medications. Response: After interactions and interventions patient responded in the following manner, Calm , Appropriate ,Compliant. Continue to assess behaviors and condition will continue to monitor throughout the shift as needed. Patient educated on ADL's, and hand hygiene. Plan: Continue to monitor Master Treatment Plan for patient's progress toward short term goals of Decreased Anxiety, Improved Mood, jail goals to return to previous living setting vs placement. Continue to assess patient for changes in above assessment. Monitor for medication needs, pain, and safety concerns. Hourly rounding performed to ensure safe environment.
--- NOTE | 2016-09-25 09:30 | NUR ---
THERAPEUTIC RECREATION GROUP NOTE TITLE :Social Session: 5 ways to [place] with Change ACTIVITY : Education and Life Skills GOAL : Increase self-expression/insight, coping skills, attention DURATION : 60 Minutes RESPONSE : No participation.
--- NOTE | 2016-09-25 11:30 | NUR ---
THERAPEUTIC RECREATION GROUP NOTE TITLE :Movement to Music: Flexibility Outside! ACTIVITY : Movement/ Exercise GOAL : Increase morale, attention, flexibility. Decrease stress/anxiety. DURATION : 30 Minutes RESPONSE : No participation.
--- NOTE | 2016-09-25 14:45 | NUR ---
ACTIVITY THERAPY ASSESSMENT Completed based on observation and interview. Pt. was on the phone with her son but she wanted DELIVERY MERCHANDISER to stay and talk to both of them. Pt's son, Mahendra was agreeable with the request. Mahendra reported his mom's depression has impacted her socialization the last 6 months. He reported she liked to do crosswords/word searches and puzzles. Pt. added she likes Bingo and watching movies, also playing cards, if it is pretty easy. When asked if she would like to do the workout sessions, Pt. stated she has been active her whole like. Now she just sleeps all the time. Pt. asked what was wrong with her and wondered when she was going to go home. Pt. wished more people would talk to her but said people always say they will be right back and then they don't come back. Pt. does well in small or 1:1 groups. Initial goal aimed to increase socialization and reduce depression: Pt. will participate in at least the workout group a day and work one on one with DELIVERY MERCHANDISER to explore ways to reduce depression.
[2016-09-25 16:37] VITALS: BP 163/63
[2016-09-25] MEDS: SENNOSIDES 8.6 MG TABLET PO SCH (19:39)
[2016-09-25] MEDS: MELATONIN 3 MG TABLET PO SCH (19:40)
[2016-09-25] MEDS: POLYETHYLENE GLYCOL 3350 17 GM PACKET. PO SCH (19:40)
[2016-09-25] MEDS: MIRTAZAPINE 7.5 MG TABLET. PO SCH (19:40)
--- NOTE | 2016-09-25 19:54 | PDOC ---
Exam Kj Demential Exam: Kj Note: Please also refer to the separate dictated note~for this date of service dictated separately.~Patient seen individually. Discussed the patient with Nursing staff reviewed the chart.~Reviewed interim history and current functioning. Reviewed vital signs,~Labs/ Radiology~and current medications noted below. Continue current treatment with the changes noted in the dictated addendum note Assessment: Vital Signs: Vital Signs Date Time Temp Pulse Resp B/P (MAP) Pulse Ox O2 Delivery O2 Flow Rate FiO2 09/25/16 16:37 98.7 60 20 163/63 (96) 100 I&O Intake and Output 09/25/16 07:00 Intake Total 840 ml Balance 840 ml Intake Oral 840 ml Labs: Laboratory Tests Test 09/25/16 02:36 Urine Collection Type Unknown Urine Color Yellow Urine Clarity Clear Urine pH 5.5 Urine Specific [place] <=1.005 Urine Protein Neg (NEG-TRACE) Urine Glucose (UA) Neg mg/dL (NEG) Urine Ketones (Stick) Neg mg/dL (NEG) Urine Blood Neg (NEG) Urine Nitrite Neg (NEG) Urine Bilirubin Neg (NEG) Urine Urobilinogen Dipstick 0.2 mg/dL (0.2 mg/dL) Urine Leukocyte Esterase Neg (NEG) Urine RBC 0 /HPF (0-2) Urine WBC Occ /HPF (0-4) Urine Squamous Epithelial Cells Few /LPF Urine Bacteria Few /HPF (0-FEW) Current Medications: Meds: Current Medications Acetaminophen (Tylenol) 650 mg PRN Q6HRS PRN PO PAIN / TEMP Last administered on 09/23/16 02:46; Start 09/22/16 at 21:15 Multi-Ingredient Ointment (Analgesic [place]) 1 toney PRN QID PRN TP MUSCLE PAIN; Start 09/22/16 at 21:15 Al Hydroxide/Mg Hydroxide (Mylanta Plus Xs) 15 ml PRN AFTMEALHC PRN PO DYSPEPSIA; Start 09/22/16 at 21:15; Status Cancel Magnesium Hydroxide (Milk Of Magnesia) 2,400 mg PRN QHS PRN PO CONSTIPATION; Start 09/22/16 at 21:15 Alprazolam (Xanax) 0.25 mg PRN TID PRN PO ANXIETY / AGITATION Last administered on 09/23/16t 13:39; Start 09/22/16 at 22:15 Citalopram Hydrobromide (CeleXA) 40 mg DAILY PO Last administered on 09/23/16 08:02; Start 09/23/16 at 09:00; Stop 09/23/16 at 18:27; Status DC Acetaminophen (Tylenol) 500 mg PRN TID PRN PO PAIN / TEMP; Start 09/22/16 at 22 :15 Atenolol (Tenormin) 25 mg DAILY PO Last administered on 09/25/16 08:04; Start 09/23/16 at 09:00 Bisacodyl (Dulcolax Supp) 10 mg PRN DAILY PRN RC CONSTIPATION; Start 09/22/16 at 22:15 Calcium Carbonate/ Glycine (Tums) 500 mg PRN TID PRN PO HEARTBURN / GAS; Start 09/22/16 at 22:15 Carbidopa/Levodopa (Sinemet 25/100) 1 tab BID PO Last administered on 19:40; Start 09/23/16 at 09:00 Cyclosporine (Restasis) 1 drop BID OU Last administered on 09/25/16 19:41; Start 09/23/16 at 09:00 Levothyroxine Sodium (Synthroid) 88 mcg DAILYAC PO Last administered on 05:48; Start 09/23/16 at 07:30 Al Hydroxide/Mg Hydroxide (Mylanta Plus Xs) 15 ml PRN TID PRN PO INDIGESTION; Start 09/22/16 at 22:15 Polyethylene Glycol (miraLAX) 8.5 gm HS PO Last administered on 09/25/16 19:40 ; Start 09/23/16 at 21:00 Pravastatin Sodium (Pravachol) 20 mg DAILY PO Last administered on 09/25/16 08 :05; Start 09/23/16 at 09:00 Sennosides (Senna) 8.6 mg HS PO Last administered on 09/25/16 19:39; Start at 21:00 Tramadol HCl (Ultram) 50 mg PRN Q6HRS PRN PO PAIN; Start 09/22/16 at 22:15 Warfarin Sodium (Coumadin) 6 mg DAILY16 PO ; Start 09/23/16 at 16:00; Stop 09/23 at 16:14; Status DC Non-Formulary Medication 650 mg PRN TID PRN PO PAIN / TEMP; Start 09/22/16 at 22:15; Status UNV Vitamin D (Vitamin D3) 5,000 unit DAILY PO Last administered on 09/25/16 08:03 ; Start 09/23/16 at 09:00 Oxybutynin Chloride (Ditropan) 5 mg BID PO Last administered on 09/25/16 19:40 ; Start 09/23/16 at 09:00 Lactobacillus Rhamnosus (Culturelle) 1 cap DAILY PO Last administered on 08:03; Start 09/23/16 at 09:00; Stop 09/24/16 at 10:00; Status DC Losartan Potassium (Cozaar) 100 mg DAILY PO Last administered on 09/25/16 08: 04; Start 09/23/16 at 09:00 Non-Formulary Medication 2,400 mg PRN DAILY PRN PO CONSTIPATION; Start at 22:15; Status UNV Melatonin 3 mg HS PO Last administered on 09/25/16 19:40; Start 09/23/16 at 21 :00 Nitrofurantoin Macrocrystals (Macrobid) 100 mg BID PO Last administered on 09/25 19:40; Start 09/23/16 at 09:00; Stop 09/25/16 at 22:00 Artificial Tears (Artificial Tears) 1 drop PRN Q4HRS PRN OU DRY EYE; Start at 23:00 Non-Formulary Medication 1 toney DAILY DT ; Start 09/23/16 at 09:00; Status UNV Sodium Chloride (Kelly) 0.25 inch HS OU Last administered on 09/24/16 19:27; Start 09/23/16 at 21:00 Warfarin Sodium (Coumadin Per Physician) 1 each PRN DAILY PRN MC SEE COMMENTS; Start 09/22/16 at 23:00 Duloxetine HCl (Cymbalta) 30 mg DAILY PO Last administered on 09/25/16 08:03; Start 09/24/16 at 09:00 Mirtazapine (Remeron) 7.5 mg QHS PO Last administered on 09/25/16 19:40; Start 09/23/16 at 21:00 Quetiapine Fumarate (SEROquel) 12.5 mg DAILY PO ; Start 09/26/16 at 09:00 Active Scripts Active Reported Citalopram Hbr (Citalopram Hydrobromide) 40 Mg Tablet 40 Mg PO DAILY Xanax (Alprazolam) 0.25 Mg Tablet 0.25 Mg PO PRN TID PRN Macrodantin (Nitrofurantoin Macrocrystal) 100 Mg Capsule 100 Mg PO BID 3 Days Culturelle (Lactobacillus Rhamnosus Gg) 1 Each Capsule 1 Each PO DAILY 2 Days Acetaminophen Er (Acetaminophen) 650 Mg Tablet.er 650 Mg PO PRN TID PRN Toviaz (Fesoterodine Fumarate) 4 Mg Tab.er.24h 4 Mg PO DAILY Systane Ultra 0.4-0.3% Eye Drp (Propylene Glycol/Peg 400) 10 Ml Drops 1 Drop OU PRN Q4HRS PRN Bisacodyl 10 Mg Supp.rect 10 Mg RC PRN DAILY PRN Coumadin (Warfarin Sodium) 6 Mg Tablet 6 Mg PO DAILY Senna Lax (Sennosides) 8.6 Mg Tablet 8.6 Mg PO HS Polyethylene Glycol 3350 17 Gm Powd.pack 0.5 Packet PO HS PRN Maalox Maximum Strength Susp (Mag Hydrox/Al Hydrox/Simeth) 355 Ml Oral.susp 15 Ml PO PRN TID PRN Acetaminophen 500 Mg Tablet 500 Mg PO PRN TID PRN Tramadol Hcl (Tramadol HCl) 50 Mg Tablet 50 Mg PO PRN Q6HRS PRN Synthroid (Levothyroxine Sodium) 88 Mcg Tablet 88 Mcg PO DAILYAC Melatonin 3 Mg Tablet 3 Mg PO HS Prevident 5000 (Sodium Fluoride) 100 Ml Gel..ml. 1 Toney DT DAILY Calcium Carbonate 500 Mg Tablet 500 Mg PO PRN TID PRN Milk Of Magnesia (Magnesium Hydroxide) 2,400 Mg/10 Ml Oral.susp 2,400 Mg PO PRN DAILY PRN Restasis (Cyclosporine) 1 Each Droperette 1 Each OU BID Losartan Potassium 100 Mg Tablet 100 Mg PO DAILY Sinemet 25-100 Mg Tablet (Carbidopa/Levodopa) 1 Each Tablet 1 Each PO BID Vitamin D (Cholecalciferol (Vitamin D3)) 5,000 Unit Tablet 5,000 Unit PO DAILY [sodium chloride 5%] Oint..gm. 1 Toney OU HS Pravastatin Sodium 20 Mg Tablet 20 Mg PO DAILY Atenolol 25 Mg Tablet 25 Mg PO DAILY Diagnosis: Problems: (1) Anxiety disorder (2) Dementia, vascular, with depression (3) Psychotic depression (4) Major depressive disorder, recurrent episode (5) Impulse control disorder ARIANE WASHBURN MD Sep 25, 2016 19:54
[2016-09-25] MEDS: SODIUM CHLORIDE 5% OPHTH OINTMENT 3.5GM TUBE. OU SCH (20:52)
--- NOTE | 2016-09-25 20:56 | NUR ---
Behavior Intervention Response and Plan: BIRP Note: Behavior: Assumed Care of patient, patient located in Patient Room at shift change. Patient exhibited the following behavior Anxious, Disorganized, Interactive, perseverates on getting a shower this PM, asks if she needs to remove her clothes now, should she take off her shoes? Where are her PJ's, will the shower be cold. Constant questions during assessment. Brief assessment on rounds of vital signs, medication needs, lab studies, and pain. Treatment plan problems 1-2. Intervention: Patient assessed and the following interventions initiated safety checks 15 Minute Checks Cognitive Assessment , Head to toe Assessment , Medications. Response: After interactions and interventions patient responded in the following manner, anxious, asking lots of questions, obsessive ,Compliant. Continue to assess behaviors and condition will continue to monitor throughout the shift as needed. Patient educated on ADL's, and hand hygiene. 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 Continue to assess patient for changes in above assessment. Monitor for medication needs, pain, and safety concerns. Hourly rounding performed to ensure safe environment.
--- NOTE | 2016-09-26 02:30 | PN ---
DATE: 09/24/2016 This is a late entry of 09/24/2016 covers elements not covered in my initial note of 09/24/2016. SUBJECTIVE: The patient was staffed at a treatment team meeting with the entire team morning of 09/24/2016, seen individually evening of 09/24/2016. The patient slept 6-3/4 hours previous evening. Reviewed the patient's history, diagnosis. She remains depressed, withdrawn, somewhat labile. REVIEW OF SYSTEMS: No CV, , pulmonary, eye, ENT system symptoms on review. Ambulation impaired with a walker. MENTAL STATUS EXAM: Reasonably oriented, anxious, repetitive in questioning. Speech coherent, abstraction fair, computation impaired, language function intact. Mood and affect depressed. LABORATORY DATA: Reviewed. IMPRESSION: Unchanged from initial note. PLAN: Continue current psychotropics. Cymbalta was started in place of Celexa, we will adjust gradually as clinically indicated. Reviewed drug interactions. Risk/benefit ratio favors no change at this time. Continue Remeron. MAN Ruben WASHBURN MD DR: MARCIAL/reynaldo JOB#: [id number] / [id number]
[2016-09-26 06:08] VITALS: BP 173/78
[2016-09-26] MEDS: cycloSPORINE 0.05% OPTH 1 DROP DROPERETTE OU SCH ×2 (07:05→19:38)
[2016-09-26] MEDS: LEVOTHYROXINE 88 MCG TABLET PO SCH (07:05)
[2016-09-26] MEDS: DULoxetine HCL 30 MG CAPSULE.DR PO SCH (07:06)
[2016-09-26] MEDS: OXYBUTYNIN CHLORIDE 5 MG TABLET PO SCH ×2 (07:06→19:38)
[2016-09-26] MEDS: LOSARTAN 50 MG TABLET. PO SCH (07:06)
[2016-09-26] MEDS: PRAVASTATIN 20 MG TABLET. PO SCH (07:06)
[2016-09-26] MEDS: CARBIDOPA/LEVODOPA 25/100MG TABLET PO SCH ×2 (07:07→19:37)
[2016-09-26] MEDS: ATENOLOL 25 MG TABLET PO SCH (07:08)
[2016-09-26] MEDS: CHOLECALCIFEROL (VITAMIN D3) 1,000 UNIT TABLET PO SCH (07:08)
[2016-09-26] MEDS: QUEtiapine 25 MG TABLET. PO SCH (09:55)
[2016-09-26] MEDS: ALPRAZolam 0.25 MG TABLET PO PRN (14:19)
[2016-09-26 15:49] VITALS: BP 109/62
--- NOTE | 2016-09-26 16:26 | NUR ---
Behavior Intervention Response and Plan: BIRP Note: Behavior: Assumed Care of patient, patient located in patient room at shift change. Patient exhibited the following behavior tearful, Disorganized, Anxious. Brief assessment on rounds of vital signs, medication needs, lab studies, and pain. Treatment plan problems 1 & 2. Intervention: Patient assessed and the following interventions initiated safety checks 15 Minute Checks Cognitive Assessment , Head to toe Assessment , Medications. Response: After interactions and interventions patient responded in the following manner, Calm , Appropriate ,Compliant. Continue to assess behaviors and condition will continue to monitor throughout the shift as needed. Patient educated on ADL's, and hand hygiene. Plan: Continue to monitor Master Treatment Plan for patient's progress toward short term goals of Decreased Anxiety, Improved Mood, shelter goals to return to previous living setting vs placement. Continue to assess patient for changes in above assessment. Monitor for medication needs, pain, and safety concerns. Hourly rounding performed to ensure safe environment.
[2016-09-26] MEDS: SENNOSIDES 8.6 MG TABLET PO SCH (19:37)
[2016-09-26] MEDS: MIRTAZAPINE 7.5 MG TABLET. PO SCH (19:37)
[2016-09-26] MEDS: MELATONIN 3 MG TABLET PO SCH (19:38)
[2016-09-26] MEDS: POLYETHYLENE GLYCOL 3350 17 GM PACKET. PO SCH (19:38)
--- NOTE | 2016-09-26 19:46 | PN ---
DATE: 09/25/2016 This late entry 09/25/2016 covers elements not covered in my initial note. SUBJECTIVE: I met with the patient in the evening of 09/25/2016. The patient slept 7-1/2 hours previous evening. She has been withdrawn, but does report repeatedly asking when she can get home, anxious, restless, repetitive and I addressed this at length with her individually. REVIEW OF SYSTEMS: No CV, , pulmonary, eye system symptoms on review. Ambulation impaired with walker. MENTAL STATUS EXAM: Reasonably oriented. Speech is coherent, abstraction fair, computation impaired, language function intact. Mood and affect anxious, labile, somewhat suspicious. No active suicidal or homicidal ideation. LABORATORY DATA: Reviewed. DIAGNOSIS: Unchanged from initial note. PLAN: Continue current psychotropics mentioned in my initial note. Start Seroquel 12.5 mg at 9:00 a.m. Maintain Xanax, Cymbalta, Remeron and melatonin for now. ARIANE WASHBURN MD DR: MARCIAL/reynaldo JOB#: [id number] / [id number]
[2016-09-26] MEDS: SODIUM CHLORIDE 5% OPHTH OINTMENT 3.5GM TUBE. OU SCH (21:00)
--- NOTE | 2016-09-26 21:53 | NUR ---
Behavior Intervention Response and Plan: BIRP Note: Behavior: Assumed Care of patient, patient located in patient room at shift change. Patient exhibited the following behavior tearful, Disorganized, Anxious. Brief assessment on rounds of vital signs, medication needs, lab studies, and pain. Treatment plan problems 1-2. Intervention: Patient assessed and the following interventions initiated safety checks 15 Minute Checks Cognitive Assessment , Head to toe Assessment , Medications. Response: After interactions and interventions patient responded in the following manner, Calm , Appropriate ,Compliant. Continue to assess behaviors and condition will continue to monitor throughout the shift as needed. Patient educated on ADL's, and hand hygiene. 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 Continue to assess patient for changes in above assessment. Monitor for medication needs, pain, and safety concerns. Hourly rounding performed to ensure safe environment.
--- NOTE | 2016-09-26 23:19 | PDOC ---
Exam Kj Demential Exam: Kj Note: Please also refer to the separate dictated note~for this date of service dictated separately.~Patient seen individually. Discussed the patient with Nursing staff reviewed the chart.~Reviewed interim history and current functioning. Reviewed vital signs,~Labs/ Radiology~and current medications noted below. Continue current treatment with the changes noted in the dictated addendum note Assessment: Vital Signs: Vital Signs Date Time Temp Pulse Resp B/P (MAP) Pulse Ox O2 Delivery O2 Flow Rate FiO2 09/26/16 15:49 98.5 60 19 109/62 (78) 97 09/26/16 06:08 Room Air I&O Intake and Output 09/26/16 07:00 Intake Total 1020 ml Balance 1020 ml Intake Oral 1020 ml Current Medications: Meds: Current Medications Acetaminophen (Tylenol) 650 mg PRN Q6HRS PRN PO PAIN / TEMP Last administered on 09/23/16 02:46; Start 09/22/16 at 21:15 Multi-Ingredient Ointment (Analgesic Anderson) 1 toney PRN QID PRN TP MUSCLE PAIN; Start 09/22/16 at 21:15 Al Hydroxide/Mg Hydroxide (Mylanta Plus Xs) 15 ml PRN AFTMEALHC PRN PO DYSPEPSIA; Start 09/22/16 at 21:15; Status Cancel Magnesium Hydroxide (Milk Of Magnesia) 2,400 mg PRN QHS PRN PO CONSTIPATION; Start 09/22/16 at 21:15 Alprazolam (Xanax) 0.25 mg PRN TID PRN PO ANXIETY / AGITATION Last administered on 09/26/16 14:19; Start 09/22/16 at 22:15 Citalopram Hydrobromide (CeleXA) 40 mg DAILY PO Last administered on 09/23/16 08:02; Start 09/23/16 at 09:00; Stop 09/23/16 at 18:27; Status DC Acetaminophen (Tylenol) 500 mg PRN TID PRN PO PAIN / TEMP; Start 09/22/16 at 22 :15 Atenolol (Tenormin) 25 mg DAILY PO Last administered on 09/26/16 07:08; Start 09/23/16 at 09:00 Bisacodyl (Dulcolax Supp) 10 mg PRN DAILY PRN RC CONSTIPATION; Start 09/22/16 at 22:15 Calcium Carbonate/ Glycine (Tums) 500 mg PRN TID PRN PO HEARTBURN / GAS; Start 09/22/16 at 22:15 Carbidopa/Levodopa (Sinemet 25/100) 1 tab BID PO Last administered on 19:37; Start 09/23/16 at 09:00 Cyclosporine (Restasis) 1 drop BID OU Last administered on 09/26/16 19:38; Start 09/23/16 at 09:00 Levothyroxine Sodium (Synthroid) 88 mcg DAILYAC PO Last administered on 07:05; Start 09/23/16 at 07:30 Al Hydroxide/Mg Hydroxide (Mylanta Plus Xs) 15 ml PRN TID PRN PO INDIGESTION; Start 09/22/16 at 22:15 Polyethylene Glycol (miraLAX) 8.5 gm HS PO Last administered on 09/26/16 19:38 ; Start 09/23/16 at 21:00 Pravastatin Sodium (Pravachol) 20 mg DAILY PO Last administered on 09/26/16 07 :06; Start 09/23/16 at 09:00 Sennosides (Senna) 8.6 mg HS PO Last administered on 09/26/16 19:37; Start at 21:00 Tramadol HCl (Ultram) 50 mg PRN Q6HRS PRN PO PAIN; Start 09/22/16 at 22:15 Warfarin Sodium (Coumadin) 6 mg DAILY16 PO ; Start 09/23/16 at 16:00; Stop 09/23 at 16:14; Status DC Non-Formulary Medication 650 mg PRN TID PRN PO PAIN / TEMP; Start 09/22/16 at 22:15; Status UNV Vitamin D (Vitamin D3) 5,000 unit DAILY PO Last administered on 09/26/16 07:08 ; Start 09/23/16 at 09:00 Oxybutynin Chloride (Ditropan) 5 mg BID PO Last administered on 09/26/16 19:38 ; Start 09/23/16 at 09:00 Lactobacillus Rhamnosus (Culturelle) 1 cap DAILY PO Last administered on 08:03; Start 09/23/16 at 09:00; Stop 09/24/16 at 10:00; Status DC Losartan Potassium (Cozaar) 100 mg DAILY PO Last administered on 09/26/16 07: 06; Start 09/23/16 at 09:00 Non-Formulary Medication 2,400 mg PRN DAILY PRN PO CONSTIPATION; Start at 22:15; Status UNV Melatonin 3 mg HS PO Last administered on 09/26/16 19:38; Start 09/23/16 at 21 :00 Nitrofurantoin Macrocrystals (Macrobid) 100 mg BID PO Last administered on 09/25 19:40; Start 09/23/16 at 09:00; Stop 09/25/16 at 22:00; Status DC Artificial Tears (Artificial Tears) 1 drop PRN Q4HRS PRN OU DRY EYE; Start at 23:00 Non-Formulary Medication 1 toney DAILY DT ; Start 09/23/16 at 09:00; Status UNV Sodium Chloride (Kelly) 0.25 inch HS OU Last administered on 09/26/16 21:00; Start 09/23/16 at 21:00 Warfarin Sodium (Coumadin Per Physician) 1 each PRN DAILY PRN MC SEE COMMENTS; Start 09/22/16 at 23:00 Duloxetine HCl (Cymbalta) 30 mg DAILY PO Last administered on 09/26/16 07:06; Start 09/24/16 at 09:00 Mirtazapine (Remeron) 7.5 mg QHS PO Last administered on 09/26/16 19:37; Start 09/23/16 at 21:00 Quetiapine Fumarate (SEROquel) 12.5 mg DAILY PO Last administered on 09/26/16 09:55; Start 09/26/16 at 09:00 Active Scripts Active Reported Citalopram Hbr (Citalopram Hydrobromide) 40 Mg Tablet 40 Mg PO DAILY Xanax (Alprazolam) 0.25 Mg Tablet 0.25 Mg PO PRN TID PRN Macrodantin (Nitrofurantoin Macrocrystal) 100 Mg Capsule 100 Mg PO BID 3 Days Culturelle (Lactobacillus Rhamnosus Gg) 1 Each Capsule 1 Each PO DAILY 2 Days Acetaminophen Er (Acetaminophen) 650 Mg Tablet.er 650 Mg PO PRN TID PRN Toviaz (Fesoterodine Fumarate) 4 Mg Tab.er.24h 4 Mg PO DAILY Systane Ultra 0.4-0.3% Eye Drp (Propylene Glycol/Peg 400) 10 Ml Drops 1 Drop OU PRN Q4HRS PRN Bisacodyl 10 Mg Supp.rect 10 Mg RC PRN DAILY PRN Coumadin (Warfarin Sodium) 6 Mg Tablet 6 Mg PO DAILY Senna Lax (Sennosides) 8.6 Mg Tablet 8.6 Mg PO HS Polyethylene Glycol 3350 17 Gm Powd.pack 0.5 Packet PO HS PRN Maalox Maximum Strength Susp (Mag Hydrox/Al Hydrox/Simeth) 355 Ml Oral.susp 15 Ml PO PRN TID PRN Acetaminophen 500 Mg Tablet 500 Mg PO PRN TID PRN Tramadol Hcl (Tramadol HCl) 50 Mg Tablet 50 Mg PO PRN Q6HRS PRN Synthroid (Levothyroxine Sodium) 88 Mcg Tablet 88 Mcg PO DAILYAC Melatonin 3 Mg Tablet 3 Mg PO HS Prevident 5000 (Sodium Fluoride) 100 Ml Gel..ml. 1 Toney DT DAILY Calcium Carbonate 500 Mg Tablet 500 Mg PO PRN TID PRN Milk Of Magnesia (Magnesium Hydroxide) 2,400 Mg/10 Ml Oral.susp 2,400 Mg PO PRN DAILY PRN Restasis (Cyclosporine) 1 Each Droperette 1 Each OU BID Losartan Potassium 100 Mg Tablet 100 Mg PO DAILY Sinemet 25-100 Mg Tablet (Carbidopa/Levodopa) 1 Each Tablet 1 Each PO BID Vitamin D (Cholecalciferol (Vitamin D3)) 5,000 Unit Tablet 5,000 Unit PO DAILY [sodium chloride 5%] Oint..gm. 1 Toney OU HS Pravastatin Sodium 20 Mg Tablet 20 Mg PO DAILY Atenolol 25 Mg Tablet 25 Mg PO DAILY Diagnosis: Problems: (1) Anxiety disorder (2) Dementia, vascular, with depression (3) Psychotic depression (4) Major depressive disorder, recurrent episode (5) Impulse control disorder ARIANE WASHBURN MD Sep 26, 2016 23:19
[2016-09-27] MEDS: LEVOTHYROXINE 88 MCG TABLET PO SCH (05:28)
[2016-09-27 05:41] VITALS: BP 144/60
[2016-09-27] MEDS: cycloSPORINE 0.05% OPTH 1 DROP DROPERETTE OU SCH ×2 (07:32→19:31)
[2016-09-27] MEDS: PRAVASTATIN 20 MG TABLET. PO SCH (07:35)
[2016-09-27] MEDS: LOSARTAN 50 MG TABLET. PO SCH (07:35)
[2016-09-27] MEDS: OXYBUTYNIN CHLORIDE 5 MG TABLET PO SCH ×2 (07:35→19:29)
[2016-09-27] MEDS: DULoxetine HCL 30 MG CAPSULE.DR PO SCH (07:35)
[2016-09-27] MEDS: ATENOLOL 25 MG TABLET PO SCH (07:36)
[2016-09-27] MEDS: CARBIDOPA/LEVODOPA 25/100MG TABLET PO SCH ×2 (07:36→19:29)
[2016-09-27] MEDS: QUEtiapine 25 MG TABLET. PO SCH (07:36)
[2016-09-27] MEDS: CHOLECALCIFEROL (VITAMIN D3) 1,000 UNIT TABLET PO SCH (07:37)
[2016-09-27 16:16] VITALS: BP 118/72
[2016-09-27] MEDS: MIRTAZAPINE 7.5 MG TABLET. PO SCH (19:28)
[2016-09-27] MEDS: POLYETHYLENE GLYCOL 3350 17 GM PACKET. PO SCH (19:28)
[2016-09-27] MEDS: SENNOSIDES 8.6 MG TABLET PO SCH (19:29)
[2016-09-27] MEDS: MELATONIN 3 MG TABLET PO SCH (19:29)
[2016-09-27] MEDS: SODIUM CHLORIDE 5% OPHTH OINTMENT 3.5GM TUBE. OU SCH (19:31)
--- NOTE | 2016-09-27 19:49 | PDOC ---
Exam Kj Demential Exam: Kj Note: Please also refer to the separate dictated note~for this date of service dictated separately.~Patient seen individually. Discussed the patient with Nursing staff reviewed the chart.~Reviewed interim history and current functioning. Reviewed vital signs,~Labs/ Radiology~and current medications noted below. Continue current treatment with the changes noted in the dictated addendum note Assessment: Vital Signs: Vital Signs Date Time Temp Pulse Resp B/P (MAP) Pulse Ox O2 Delivery O2 Flow Rate FiO2 09/27/16 16:16 98.5 59 18 118/72 (87) 97 Room Air I&O Intake and Output 09/27/16 07:00 Intake Total 1220 ml Balance 1220 ml Intake Oral 1220 ml Current Medications: Meds: Current Medications Acetaminophen (Tylenol) 650 mg PRN Q6HRS PRN PO PAIN / TEMP Last administered on 09/23/16 02:46; Start 09/22/16 at 21:15 Multi-Ingredient Ointment (Analgesic Eleele) 1 toney PRN QID PRN TP MUSCLE PAIN; Start 09/22/16 at 21:15 Al Hydroxide/Mg Hydroxide (Mylanta Plus Xs) 15 ml PRN AFTMEALHC PRN PO DYSPEPSIA; Start 09/22/16 at 21:15; Status Cancel Magnesium Hydroxide (Milk Of Magnesia) 2,400 mg PRN QHS PRN PO CONSTIPATION; Start 09/22/16 at 21:15 Alprazolam (Xanax) 0.25 mg PRN TID PRN PO ANXIETY / AGITATION Last administered on 09/26/16 14:19; Start 09/22/16 at 22:15 Citalopram Hydrobromide (CeleXA) 40 mg DAILY PO Last administered on 09/23/16 08:02; Start 09/23/16 at 09:00; Stop 09/23/16 at 18:27; Status DC Acetaminophen (Tylenol) 500 mg PRN TID PRN PO PAIN / TEMP; Start 09/22/16 at 22 :15 Atenolol (Tenormin) 25 mg DAILY PO Last administered on 09/27/16 07:36; Start 09/23/16 at 09:00 Bisacodyl (Dulcolax Supp) 10 mg PRN DAILY PRN RC CONSTIPATION; Start 09/22/16 at 22:15 Calcium Carbonate/ Glycine (Tums) 500 mg PRN TID PRN PO HEARTBURN / GAS; Start 09/22/16 at 22:15 Carbidopa/Levodopa (Sinemet 25/100) 1 tab BID PO Last administered on 19:29; Start 09/23/16 at 09:00 Cyclosporine (Restasis) 1 drop BID OU Last administered on 09/27/16 19:31; Start 09/23/16 at 09:00 Levothyroxine Sodium (Synthroid) 88 mcg DAILYAC PO Last administered on 05:28; Start 09/23/16 at 07:30 Al Hydroxide/Mg Hydroxide (Mylanta Plus Xs) 15 ml PRN TID PRN PO INDIGESTION; Start 09/22/16 at 22:15 Polyethylene Glycol (miraLAX) 8.5 gm HS PO Last administered on 09/27/16 19:28 ; Start 09/23/16 at 21:00 Pravastatin Sodium (Pravachol) 20 mg DAILY PO Last administered on 09/27/16 07 :35; Start 09/23/16 at 09:00 Sennosides (Senna) 8.6 mg HS PO Last administered on 09/27/16 19:29; Start at 21:00 Tramadol HCl (Ultram) 50 mg PRN Q6HRS PRN PO PAIN; Start 09/22/16 at 22:15 Warfarin Sodium (Coumadin) 6 mg DAILY16 PO ; Start 09/23/16 at 16:00; Stop 09/23 at 16:14; Status DC Non-Formulary Medication 650 mg PRN TID PRN PO PAIN / TEMP; Start 09/22/16 at 22:15; Status UNV Vitamin D (Vitamin D3) 5,000 unit DAILY PO Last administered on 09/27/16 07:37 ; Start 09/23/16 at 09:00 Oxybutynin Chloride (Ditropan) 5 mg BID PO Last administered on 09/27/16 19:29 ; Start 09/23/16 at 09:00 Lactobacillus Rhamnosus (Culturelle) 1 cap DAILY PO Last administered on 08:03; Start 09/23/16 at 09:00; Stop 09/24/16 at 10:00; Status DC Losartan Potassium (Cozaar) 100 mg DAILY PO Last administered on 09/27/16 07: 35; Start 09/23/16 at 09:00 Non-Formulary Medication 2,400 mg PRN DAILY PRN PO CONSTIPATION; Start at 22:15; Status UNV Melatonin 3 mg HS PO Last administered on 09/27/16 19:29; Start 09/23/16 at 21 :00 Nitrofurantoin Macrocrystals (Macrobid) 100 mg BID PO Last administered on 09/25 19:40; Start 09/23/16 at 09:00; Stop 09/25/16 at 22:00; Status DC Artificial Tears (Artificial Tears) 1 drop PRN Q4HRS PRN OU DRY EYE; Start at 23:00 Non-Formulary Medication 1 toney DAILY DT ; Start 09/23/16 at 09:00; Status UNV Sodium Chloride (Kelly) 0.25 inch HS OU Last administered on 09/27/16 19:31; Start 09/23/16 at 21:00 Warfarin Sodium (Coumadin Per Physician) 1 each PRN DAILY PRN MC SEE COMMENTS; Start 09/22/16 at 23:00 Duloxetine HCl (Cymbalta) 30 mg DAILY PO Last administered on 09/27/16 07:35; Start 09/24/16 at 09:00 Mirtazapine (Remeron) 7.5 mg QHS PO Last administered on 09/27/16 19:28; Start 09/23/16 at 21:00 Quetiapine Fumarate (SEROquel) 12.5 mg DAILY PO Last administered on 09/27/16 07:36; Start 09/26/16 at 09:00 Active Scripts Active Reported Citalopram Hbr (Citalopram Hydrobromide) 40 Mg Tablet 40 Mg PO DAILY Xanax (Alprazolam) 0.25 Mg Tablet 0.25 Mg PO PRN TID PRN Macrodantin (Nitrofurantoin Macrocrystal) 100 Mg Capsule 100 Mg PO BID 3 Days Culturelle (Lactobacillus Rhamnosus Gg) 1 Each Capsule 1 Each PO DAILY 2 Days Acetaminophen Er (Acetaminophen) 650 Mg Tablet.er 650 Mg PO PRN TID PRN Toviaz (Fesoterodine Fumarate) 4 Mg Tab.er.24h 4 Mg PO DAILY Systane Ultra 0.4-0.3% Eye Drp (Propylene Glycol/Peg 400) 10 Ml Drops 1 Drop OU PRN Q4HRS PRN Bisacodyl 10 Mg Supp.rect 10 Mg RC PRN DAILY PRN Coumadin (Warfarin Sodium) 6 Mg Tablet 6 Mg PO DAILY Senna Lax (Sennosides) 8.6 Mg Tablet 8.6 Mg PO HS Polyethylene Glycol 3350 17 Gm Powd.pack 0.5 Packet PO HS PRN Maalox Maximum Strength Susp (Mag Hydrox/Al Hydrox/Simeth) 355 Ml Oral.susp 15 Ml PO PRN TID PRN Acetaminophen 500 Mg Tablet 500 Mg PO PRN TID PRN Tramadol Hcl (Tramadol HCl) 50 Mg Tablet 50 Mg PO PRN Q6HRS PRN Synthroid (Levothyroxine Sodium) 88 Mcg Tablet 88 Mcg PO DAILYAC Melatonin 3 Mg Tablet 3 Mg PO HS Prevident 5000 (Sodium Fluoride) 100 Ml Gel..ml. 1 Toney DT DAILY Calcium Carbonate 500 Mg Tablet 500 Mg PO PRN TID PRN Milk Of Magnesia (Magnesium Hydroxide) 2,400 Mg/10 Ml Oral.susp 2,400 Mg PO PRN DAILY PRN Restasis (Cyclosporine) 1 Each Droperette 1 Each OU BID Losartan Potassium 100 Mg Tablet 100 Mg PO DAILY Sinemet 25-100 Mg Tablet (Carbidopa/Levodopa) 1 Each Tablet 1 Each PO BID Vitamin D (Cholecalciferol (Vitamin D3)) 5,000 Unit Tablet 5,000 Unit PO DAILY [sodium chloride 5%] Oint..gm. 1 Toney OU HS Pravastatin Sodium 20 Mg Tablet 20 Mg PO DAILY Atenolol 25 Mg Tablet 25 Mg PO DAILY Diagnosis: Problems: (1) Anxiety disorder (2) Dementia, vascular, with depression (3) Psychotic depression (4) Major depressive disorder, recurrent episode (5) Impulse control disorder ARIANE WASHBURN MD Sep 27, 2016 19:49
--- NOTE | 2016-09-27 21:49 | NUR ---
Behavior Intervention Response and Plan: BIRP Note: Behavior: Assumed Care of patient, patient located in Day Room at shift change. Patient exhibited the following behavior Calm, Interactive, Cooperative, seems to be religiously preoccupied talking about peggy being her personal savior, that we will all be saved if we accept peggy. Brief assessment on rounds of vital signs, medication needs, lab studies, and pain. Treatment plan problems 1-2. Intervention: Patient assessed and the following interventions initiated safety checks 15 Minute Checks Cognitive Assessment , Head to toe Assessment , Medications. Response: After interactions and interventions patient responded in the following manner, Calm , Interactive ,Cooperative, gave patient large print search a word activities, she was too tired to complete but states she will work on them tomorrow. Continue to assess behaviors and condition will continue to monitor throughout the shift as needed. Patient educated on ADL's, and hand hygiene. Plan: Continue to monitor Master Treatment Plan for patient's progress toward short term goals of Decreased Anxiety, Improved Mood, information security goals to return to previous living setting vs placement. Continue to assess patient for changes in above assessment. Monitor for medication needs, pain, and safety concerns. Hourly rounding performed to ensure safe environment.
[2016-09-27] MEDS ORDERED: WARFARIN 4 MG TABLET. PO ONE (23:00)
--- NOTE | 2016-09-28 01:10 | PN ---
DATE: 09/26/2016 This late entry of 09/26/2016 covers elements not covered in my initial note of 09/26/2016. I met with the patient at great length in her room individually evening of 09/26/2016. I sat with her on her bed. She has many questions about her diagnosis, past treatment, current medications, options for future treatment, and potential side effects, all very relevant questions, but somewhat anxious, obsessive about this and we addressed all of this. Even after I had seen for lengthy round, she was back finding me while I was seeing other patients, had some more questions again, which I answered. Per nursing report, the patient remains somewhat obsessive about details, asked multiple times about her shower. REVIEW OF SYSTEMS: Ambulation impaired with a walker. No CV, , pulmonary, eye, ENT system symptoms on review, vague somatic symptoms. MENTAL STATUS EXAM: Reasonably oriented. Speech is coherent, rapid. Abstraction fair, computation impaired, language function intact, attention span short. Mood and affect, somewhat anxious, obsessive, labile, dysphoric at times. LABORATORY DATA: Reviewed. IMPRESSION: Unchanged from initial note, major depressive disorder with psychotic features, obsessive compulsive disorder, and anxiety disorder, unspecified. PLAN: Seroquel is 12.5 mg daily. We will increase to 12.5 mg 3 times a day. Maintain Xanax p.r.n. and increase Cymbalta to 60 mg a day. Continue Remeron 7.5 at bedtime, melatonin 3 mg at bedtime. Adjust further as clinically indicated. ARIANE WASHBURN MD DR: MARCIAL/reynaldo JOB#: [id number] / [id number]
[2016-09-28 06:10] VITALS: BP 180/79
[2016-09-28 07:56] LABS: BASO # 0.1 x10^3/uL (0.0-0.2); BASO % 1 % (0-3); EOS # 0.3 x10^3/uL (0.0-0.7); EOS % 5 % (0-3); HEMATOCRIT 29.1 % (36.0-47.0); LYMPH # 1.1 x10^3/uL (1.0-4.8); LYMPH % 19 % (24-48); MEAN CORPUSCULAR HEMOGLOBIN 33 pg (25-35); MEAN CORPUSCULAR HGB CONC 34 g/dL (31-37); MEAN CORPUSCULAR VOLUME 96 fL (79-100); MONO # 0.6 x10^3/uL (0.0-1.1); MONO % 10 % (0-9); NEUT # 3.6 x10^3uL (1.8-7.7); NEUT % 65 % (31-73); PLATELET COUNT 254 x10^3/uL (140-400); RED BLOOD COUNT 3.05 x10^6/uL (3.50-5.40); RED CELL DISTRIBUTION WIDTH 14.7 % (11.5-14.5); WHITE BLOOD COUNT 5.6 x10^3/uL (4.0-11.0)
[2016-09-28] MEDS: ATENOLOL 25 MG TABLET PO SCH (07:58)
[2016-09-28] MEDS: OXYBUTYNIN CHLORIDE 5 MG TABLET PO SCH ×2 (07:58→20:28)
[2016-09-28] MEDS: PRAVASTATIN 20 MG TABLET. PO SCH (07:58)
[2016-09-28] MEDS: CHOLECALCIFEROL (VITAMIN D3) 1,000 UNIT TABLET PO SCH (07:59)
[2016-09-28] MEDS: CARBIDOPA/LEVODOPA 25/100MG TABLET PO SCH ×2 (07:59→20:28)
[2016-09-28] MEDS: LOSARTAN 50 MG TABLET. PO SCH (07:59)
[2016-09-28] MEDS: LEVOTHYROXINE 88 MCG TABLET PO SCH (07:59)
[2016-09-28] MEDS: cycloSPORINE 0.05% OPTH 1 DROP DROPERETTE OU SCH ×2 (08:00→20:28)
[2016-09-28] MEDS: DULoxetine HCL 60 MG CAPSULE.DR PO SCH (08:03)
[2016-09-28] MEDS: QUEtiapine 25 MG TABLET. PO SCH ×3 (08:03→20:31)
[2016-09-28 08:23] LABS: ALBUMIN 2.6 g/dL (3.4-5.0); ALBUMIN/GLOBULIN RATIO 0.7 (1.0-1.7); CALCIUM 9.2 mg/dL (8.5-10.1); CREATININE 1.3 mg/dL (0.6-1.0); GFR 38.7; POTASSIUM 4.7 mmol/L (3.5-5.1); TOTAL BILIRUBIN 0.6 mg/dL (0.2-1.0); TOTAL PROTEIN 6.2 g/dL (6.4-8.2)
--- NOTE | 2016-09-28 09:15 | NUR ---
THERAPEUTIC RECREATION GROUP NOTE TITLE :Decorate for [employer] ACTIVITY : [employer]s GOAL : Increase socialization, fine motor skills, creativity DURATION : 75 Minutes RESPONSE : No participation.
--- NOTE | 2016-09-28 09:16 | NUR ---
CON received call from Pt's son regarding several questions about Pt's stay and dc plan. Mahendra asked if Dr. Braun would be available to contact him on Wednesday for a general update. CON asked if he would want to email this SW his list of questions so that Dr. Braun would be prepared w/the appropriate information.
--- NOTE | 2016-09-28 12:15 | NUR ---
THERAPEUTIC RECREATION GROUP NOTE TITLE :[employer] ACTIVITY : Social Events and Holidays GOAL : Facilitate sense of belonging and well-being, elevate mood, increase socialization. Incorporate traditions. DURATION : 135 Minutes RESPONSE : Minimal participation. Pt. did not experience totality with the group; however, she asked for a pair of glasses and enjoyed snack with everyone.
--- NOTE | 2016-09-28 15:43 | OP ---
DATE OF SURGERY: 09/27/2016 PSYCHIATRIC PROGRESS NOTE The patient was seen on rounds at great length the evening of 09/27/2016. Discussed with nursing staff, reviewed the chart. Met with the patient in her room and then she met with me again later as I was rounding on other patients and yet again about half an hour after the initial visit asking the same questions about "what am I doing here?" "what do I need to do." She is anxious, somewhat obsessive, but otherwise reasonably oriented. REVIEW OF SYSTEMS: Ambulation impaired with walker. No CV, , pulmonary, eye system symptoms on review. MENTAL STATUS EXAM: Reasonably oriented to herself and situation. Speech coherent, rapid, repetitive, abstraction fair, computation impaired, language function intact, attention span short. Mood and affect still anxious, labile. LABORATORY DATA: Reviewed. IMPRESSION: Unchanged from initial note. PLAN: Carefully reviewed her current psychotropics drug interactions. Seroquel has been adjusted. Cymbalta increased. Risk/benefit ratio favors no further changes as of now. ARIANE WASHBURN MD DR: MARCIAL/reynaldo JOB#: [id number] / [id number]
[2016-09-28 16:04] VITALS: BP 135/60
--- NOTE | 2016-09-28 19:48 | PDOC ---
Exam Kj Demential Exam: Kj Note: Please also refer to the separate dictated note~for this date of service dictated separately.~Patient seen individually. Discussed the patient with Nursing staff reviewed the chart.~Reviewed interim history and current functioning. Reviewed vital signs,~Labs/ Radiology~and current medications noted below. Continue current treatment with the changes noted in the dictated addendum note Assessment: Vital Signs: Vital Signs Date Time Temp Pulse Resp B/P (MAP) Pulse Ox O2 Delivery O2 Flow Rate FiO2 09/28/16 16:04 97.9 60 20 135/60 (85) 98 09/27/16 16:16 Room Air I&O Intake and Output 09/28/16 06:59 Intake Total 1080 ml Balance 1080 ml Intake Oral 1080 ml Labs: Laboratory Tests Test 09/27/16 21:55 09/28/16 07:17 Prothrombin Time 11.1 SEC (9.4-11.4) 10.9 SEC (9.4-11.4) Prothrombin Time INR 1.1 (0.9-1.1) 1.1 (0.9-1.1) White Blood Count 5.6 x10^3/uL (4.0-11.0) Red Blood Count 3.05 x10^6/uL (3.50-5.40) L Hemoglobin 10.0 g/dL (12.0-15.5) L Hematocrit 29.1 % (36.0-47.0) L Mean Corpuscular Volume 96 fL (79-100) Mean Corpuscular Hemoglobin 33 pg (25-35) Mean Corpuscular Hemoglobin Concent 34 g/dL (31-37) Red Cell Distribution Width 14.7 % (11.5-14.5) H Platelet Count 254 x10^3/uL (140-400) Neutrophils (%) (Auto) 65 % (31-73) Lymphocytes (%) (Auto) 19 % (24-48) L Monocytes (%) (Auto) 10 % (0-9) H Eosinophils (%) (Auto) 5 % (0-3) H Basophils (%) (Auto) 1 % (0-3) Neutrophils # (Auto) 3.6 x10^3uL (1.8-7.7) Lymphocytes # (Auto) 1.1 x10^3/uL (1.0-4.8) Monocytes # (Auto) 0.6 x10^3/uL (0.0-1.1) Eosinophils # (Auto) 0.3 x10^3/uL (0.0-0.7) Basophils # (Auto) 0.1 x10^3/uL (0.0-0.2) Sodium Level 137 mmol/L (136-145) Potassium Level 4.7 mmol/L (3.5-5.1) Chloride Level 104 mmol/L (98-107) Carbon Dioxide Level 31 mmol/L (21-32) Anion Gap 2 (6-14) L Blood Urea Nitrogen 30 mg/dL (7-20) H Creatinine 1.3 mg/dL (0.6-1.0) H Estimated GFR (Cockcroft-Gault) 38.7 BUN/Creatinine Ratio 23 (6-20) H Glucose Level 87 mg/dL (70-99) Calcium Level 9.2 mg/dL (8.5-10.1) Total Bilirubin 0.6 mg/dL (0.2-1.0) Aspartate Amino Transferase (AST) 22 U/L (15-37) Alanine Aminotransferase (ALT) 15 U/L (14-59) Alkaline Phosphatase 85 U/L (46-116) Total Protein 6.2 g/dL (6.4-8.2) L Albumin 2.6 g/dL (3.4-5.0) L Albumin/Globulin Ratio 0.7 (1.0-1.7) L Current Medications: Meds: Current Medications Acetaminophen (Tylenol) 650 mg PRN Q6HRS PRN PO PAIN / TEMP Last administered on 09/23/16t 02:46; Start 09/22/16 at 21:15 Multi-Ingredient Ointment (Analgesic [place]) 1 toney PRN QID PRN TP MUSCLE PAIN; Start 09/22/16 at 21:15 Al Hydroxide/Mg Hydroxide (Mylanta Plus Xs) 15 ml PRN AFTMEALHC PRN PO DYSPEPSIA; Start 09/22/16 at 21:15; Status Cancel Magnesium Hydroxide (Milk Of Magnesia) 2,400 mg PRN QHS PRN PO CONSTIPATION; Start 09/22/16 at 21:15 Alprazolam (Xanax) 0.25 mg PRN TID PRN PO ANXIETY / AGITATION Last administered on 09/26/16 14:19; Start 09/22/16 at 22:15 Citalopram Hydrobromide (CeleXA) 40 mg DAILY PO Last administered on 09/23/16 08:02; Start 09/23/16 at 09:00; Stop 09/23/16 at 18:27; Status DC Acetaminophen (Tylenol) 500 mg PRN TID PRN PO PAIN / TEMP; Start 09/22/16 at 22 :15 Atenolol (Tenormin) 25 mg DAILY PO Last administered on 09/28/16 07:58; Start 09/23/16 at 09:00 Bisacodyl (Dulcolax Supp) 10 mg PRN DAILY PRN RC CONSTIPATION; Start 09/22/16 at 22:15 Calcium Carbonate/ Glycine (Tums) 500 mg PRN TID PRN PO HEARTBURN / GAS; Start 09/22/16 at 22:15 Carbidopa/Levodopa (Sinemet 25/100) 1 tab BID PO Last administered on 07:59; Start 09/23/16 at 09:00 Cyclosporine (Restasis) 1 drop BID OU Last administered on 09/28/16 08:00; Start 09/23/16 at 09:00 Levothyroxine Sodium (Synthroid) 88 mcg DAILYAC PO Last administered on 07:59; Start 09/23/16 at 07:30 Al Hydroxide/Mg Hydroxide (Mylanta Plus Xs) 15 ml PRN TID PRN PO INDIGESTION; Start 09/22/16 at 22:15 Polyethylene Glycol (miraLAX) 8.5 gm HS PO Last administered on 09/27/16 19:28 ; Start 09/23/16 at 21:00 Pravastatin Sodium (Pravachol) 20 mg DAILY PO Last administered on 09/28/16 07 :58; Start 09/23/16 at 09:00 Sennosides (Senna) 8.6 mg HS PO Last administered on 09/27/16 19:29; Start at 21:00 Tramadol HCl (Ultram) 50 mg PRN Q6HRS PRN PO PAIN; Start 09/22/16 at 22:15 Warfarin Sodium (Coumadin) 6 mg DAILY16 PO ; Start 09/23/16 at 16:00; Stop 09/23 at 16:14; Status DC Non-Formulary Medication 650 mg PRN TID PRN PO PAIN / TEMP; Start 09/22/16 at 22:15; Status UNV Vitamin D (Vitamin D3) 5,000 unit DAILY PO Last administered on 09/28/16 07:59 ; Start 09/23/16 at 09:00 Oxybutynin Chloride (Ditropan) 5 mg BID PO Last administered on 09/28/16 07:58 ; Start 09/23/16 at 09:00 Lactobacillus Rhamnosus (Culturelle) 1 cap DAILY PO Last administered on 08:03; Start 09/23/16 at 09:00; Stop 09/24/16 at 10:00; Status DC Losartan Potassium (Cozaar) 100 mg DAILY PO Last administered on 09/28/16 07: 59; Start 09/23/16 at 09:00 Non-Formulary Medication 2,400 mg PRN DAILY PRN PO CONSTIPATION; Start at 22:15; Status UNV Melatonin 3 mg HS PO Last administered on 09/27/16 19:29; Start 09/23/16 at 21 :00 Nitrofurantoin Macrocrystals (Macrobid) 100 mg BID PO Last administered on 09/25 19:40; Start 09/23/16 at 09:00; Stop 09/25/16 at 22:00; Status DC Artificial Tears (Artificial Tears) 1 drop PRN Q4HRS PRN OU DRY EYE; Start at 23:00 Non-Formulary Medication 1 toney DAILY DT ; Start 09/23/16 at 09:00; Status UNV Sodium Chloride (Kelly) 0.25 inch HS OU Last administered on 09/27/16 19:31; Start 09/23/16 at 21:00 Warfarin Sodium (Coumadin Per Physician) 1 each PRN DAILY PRN MC SEE COMMENTS; Start 09/22/16 at 23:00 Duloxetine HCl (Cymbalta) 30 mg DAILY PO Last administered on 09/27/16 07:35; Start 09/24/16 at 09:00; Stop 09/28/16 at 00:30; Status DC Mirtazapine (Remeron) 7.5 mg QHS PO Last administered on 09/27/16 19:28; Start 09/23/16 at 21:00 Quetiapine Fumarate (SEROquel) 12.5 mg DAILY PO Last administered on 09/27/16 07:36; Start 09/26/16 at 09:00; Stop 09/27/16 at 22:11; Status DC Warfarin Sodium (Coumadin) 4 mg 1X ONCE PO Last administered on 09/27/16 22: 47; Start 09/27/16 at 23:00; Stop 09/27/16 at 23:01; Status DC Quetiapine Fumarate (SEROquel) 12.5 mg TID PO Last administered on 09/28/16 14 :45; Start 09/28/16 at 09:00; Stop 09/28/16 at 21:00 Duloxetine HCl (Cymbalta) 60 mg DAILY PO Last administered on 09/28/16 08:03; Start 09/28/16 at 09:00 Quetiapine Fumarate (SEROquel) 12.5 mg BID@0900,1700 PO ; Start 09/29/16 at 09: 00 Quetiapine Fumarate (SEROquel) 25 mg DAILY@1400 PO ; Start 09/29/16 at 14:00 Active Scripts Active Reported Citalopram Hbr (Citalopram Hydrobromide) 40 Mg Tablet 40 Mg PO DAILY Xanax (Alprazolam) 0.25 Mg Tablet 0.25 Mg PO PRN TID PRN Macrodantin (Nitrofurantoin Macrocrystal) 100 Mg Capsule 100 Mg PO BID 3 Days Culturelle (Lactobacillus Rhamnosus Gg) 1 Each Capsule 1 Each PO DAILY 2 Days Acetaminophen Er (Acetaminophen) 650 Mg Tablet.er 650 Mg PO PRN TID PRN Toviaz (Fesoterodine Fumarate) 4 Mg Tab.er.24h 4 Mg PO DAILY Systane Ultra 0.4-0.3% Eye Drp (Propylene Glycol/Peg 400) 10 Ml Drops 1 Drop OU PRN Q4HRS PRN Bisacodyl 10 Mg Supp.rect 10 Mg RC PRN DAILY PRN Coumadin (Warfarin Sodium) 6 Mg Tablet 6 Mg PO DAILY Senna Lax (Sennosides) 8.6 Mg Tablet 8.6 Mg PO HS Polyethylene Glycol 3350 17 Gm Powd.pack 0.5 Packet PO HS PRN Maalox Maximum Strength Susp (Mag Hydrox/Al Hydrox/Simeth) 355 Ml Oral.susp 15 Ml PO PRN TID PRN Acetaminophen 500 Mg Tablet 500 Mg PO PRN TID PRN Tramadol Hcl (Tramadol HCl) 50 Mg Tablet 50 Mg PO PRN Q6HRS PRN Synthroid (Levothyroxine Sodium) 88 Mcg Tablet 88 Mcg PO DAILYAC Melatonin 3 Mg Tablet 3 Mg PO HS Prevident 5000 (Sodium Fluoride) 100 Ml Gel..ml. 1 Toney DT DAILY Calcium Carbonate 500 Mg Tablet 500 Mg PO PRN TID PRN Milk Of Magnesia (Magnesium Hydroxide) 2,400 Mg/10 Ml Oral.susp 2,400 Mg PO PRN DAILY PRN Restasis (Cyclosporine) 1 Each Droperette 1 Each OU BID Losartan Potassium 100 Mg Tablet 100 Mg PO DAILY Sinemet 25-100 Mg Tablet (Carbidopa/Levodopa) 1 Each Tablet 1 Each PO BID Vitamin D (Cholecalciferol (Vitamin D3)) 5,000 Unit Tablet 5,000 Unit PO DAILY [sodium chloride 5%] Oint..gm. 1 Toney OU HS Pravastatin Sodium 20 Mg Tablet 20 Mg PO DAILY Atenolol 25 Mg Tablet 25 Mg PO DAILY Diagnosis: Problems: (1) Anxiety disorder (2) Dementia, vascular, with depression (3) Psychotic depression (4) Major depressive disorder, recurrent episode (5) Impulse control disorder ARIANE WASHBURN MD Sep 28, 2016 19:48
[2016-09-28] MEDS: MELATONIN 3 MG TABLET PO SCH (20:28)
[2016-09-28] MEDS: SENNOSIDES 8.6 MG TABLET PO SCH (20:28)
[2016-09-28] MEDS: MIRTAZAPINE 7.5 MG TABLET. PO SCH (20:28)
[2016-09-28] MEDS: SODIUM CHLORIDE 5% OPHTH OINTMENT 3.5GM TUBE. OU SCH (20:29)
[2016-09-28] MEDS: POLYETHYLENE GLYCOL 3350 17 GM PACKET. PO SCH (20:29)
--- NOTE | 2016-09-28 21:39 | NUR ---
Behavior Intervention Response and Plan: BIRP Note: Behavior: Assumed Care of patient, patient located in Patient Room at shift change. Patient exhibited the following behavior Calm, Drowsy, Disorganized. Brief assessment on rounds of vital signs, medication needs, lab studies, and pain. Treatment plan problems Altered thought process and fall risk. Intervention: Patient assessed and the following interventions initiated safety checks 15 Minute Checks Personal Alarm in place , Cognitive Assessment , Medications. Response: After interactions and interventions patient responded in the following manner, Calm , Drowsy ,Compliant. Continue to assess behaviors and condition will continue to monitor throughout the shift as needed. Patient educated on ADL's, and hand hygiene. 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 Continue to assess patient for changes in above assessment. Monitor for medication needs, pain, and safety concerns. Hourly rounding performed to ensure safe environment.
[2016-09-29 05:52] VITALS: BP 145/68
[2016-09-29] MEDS: LEVOTHYROXINE 88 MCG TABLET PO SCH (08:11)
[2016-09-29] MEDS: PRAVASTATIN 20 MG TABLET. PO SCH (08:11)
[2016-09-29] MEDS: ATENOLOL 25 MG TABLET PO SCH (08:11)
[2016-09-29] MEDS: CHOLECALCIFEROL (VITAMIN D3) 1,000 UNIT TABLET PO SCH (08:12)
[2016-09-29] MEDS: DULoxetine HCL 60 MG CAPSULE.DR PO SCH (08:12)
[2016-09-29] MEDS: CARBIDOPA/LEVODOPA 25/100MG TABLET PO SCH ×2 (08:12→19:40)
[2016-09-29] MEDS: OXYBUTYNIN CHLORIDE 5 MG TABLET PO SCH ×2 (08:12→19:39)
[2016-09-29] MEDS: LOSARTAN 50 MG TABLET. PO SCH (08:12)
[2016-09-29] MEDS: QUEtiapine 25 MG TABLET. PO SCH ×3 (08:13→16:59)
[2016-09-29] MEDS: cycloSPORINE 0.05% OPTH 1 DROP DROPERETTE OU SCH ×2 (08:14→19:40)
--- NOTE | 2016-09-29 09:10 | NUR ---
THERAPEUTIC RECREATION GROUP NOTE TITLE :You know you're in [place] ACTIVITY : Reminiscence GOAL : Increase socialization, gain perspective, elevate mood, stimulate memory DURATION : 50 minutes RESPONSE : No participation.
--- NOTE | 2016-09-29 09:18 | NUR ---
SW received email from Pt's son, Mahendra, w/questions about Pt's therapy and medications and discharge plan. SW provided many of the answers in a reply email and printed the same email for Dr. Braun to contact and follow up w/this evening.
--- NOTE | 2016-09-29 09:45 | NUR ---
Behavior Intervention Response and Plan: BIRP Note: Behavior: Assumed Care of patient, patient located in Patient Room at shift change. Patient exhibited the following behavior Anxious, Disorganized, Withdrawn. Brief assessment on rounds of vital signs, medication needs, lab studies, and pain. Treatment plan problems 1 & 2. Intervention: Patient assessed and the following interventions initiated safety checks 15 Minute Checks Cognitive Assessment , Head to toe Assessment , Medications. Response: After interactions and interventions patient responded in the following manner, Calm , Appropriate ,Compliant. Continue to assess behaviors and condition will continue to monitor throughout the shift as needed. Patient educated on ADL's, and hand hygiene. 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 Continue to assess patient for changes in above assessment. Monitor for medication needs, pain, and safety concerns. Hourly rounding performed to ensure safe environment.
--- NOTE | 2016-09-29 10:38 | NUR ---
SW attempted to meet w/Pt., however, Pt. sleeping and not arousable. SW will check in later in the day.
--- NOTE | 2016-09-29 11:30 | NUR ---
THERAPEUTIC RECREATION GROUP NOTE TITLE :Movement to Music: Strength ACTIVITY : Movement/ Exercise GOAL : Increase morale, attention, flexibility. Decrease stress/anxiety. DURATION : 30 Minutes RESPONSE : Full participation. Pt. followed along with the moves without any prompting. She was calm and pleasant the entire time.
--- NOTE | 2016-09-29 11:51 | NUR ---
CON spoke w/Orly, building rigger Manager at [facility] to gather additional information on Pt's baseline behaviors. Per Orly, Pt. has resided at [facility] for 2 years and has consistently shown tearfulness, obsessive behaviors, and an overall "roller coaster of emotions". New behaviors include the general statements of wanting to (w/o a plan), withdrawn and afraid to be alone. CON will continue to update Orly as dc is closer.
--- NOTE | 2016-09-29 14:44 | NUR ---
SW met w/Pt. directly after lunch, walking w/Pt. back to Pt's room. Pt. did not remember meeting w/this SW late last week, so SW reintroduced reason for admit and SW's role. Pt. presented very confused, not being able to answer direct questions asked by CON. SW asked 4 different times why Pt. stated she wanted to . Pt. answered each time w/other information not related to the question. SW finally asked if PT. understood SW's question and PT. stated yes. SW asked again, "Why do you say you want to ". Pt. stated she is 86 years old and can't do anything any longer. SW pointed out obvious physical things Pt. is able to still do, such as walk, talk, etc. SW then asked what are some reasons worth living. Pt. was able to verbalize if she continued to live, she could pray for her son who had recent heart surgery and her other family members that are still living. Pt. told SW about the several family members that she has lost recently, and appear to be weighing heavy on her mind. SW asked if Pt. felt depressed and Pt. stated she has probably felt depressed since the 5th grade, but she has noticed it has been worse since losing her family. SW discussed Pt. meeting w/her Therapist and Pt. was able to identify the therapist as Dr. Mistry. Pt. stated she has thought about dieing, but not about suicide as she wouldn't even know how to develop a plan or follow thru. Pt. stated she is not suicidal at this time. Pt. appeared to be getting very sleepy as the discussion continued. CON asked if Pt. wanted to lay down. Pt. asked about other activities during the day to help the days pass faster and stated she enjoys crocheting, cross stitching, word finds and music. SW assisted Pt. to lay in bed and Pt. asked if SW would meet w/her again soon. SW assured they would meet again.
[2016-09-29 16:05] VITALS: BP 102/57
--- NOTE | 2016-09-29 17:55 | NUR ---
Patient is tearful, asking what's going to happen to her. When I tried to explain that she would most likely go back to [facility], she denied it, saying she would here. She then stated that she wanted to go to her room and sleep and never wake up so she can be with her and son. PRN med provided per eMAR and patient encouraged to call her son.
[2016-09-29] MEDS: ALPRAZolam 0.25 MG TABLET PO PRN (17:57)
--- NOTE | 2016-09-29 18:45 | PDOC ---
Exam Kj Demential Exam: Kj Note: Please also refer to the separate dictated note~for this date of service dictated separately.~Patient seen individually. Discussed the patient with Nursing staff reviewed the chart.~Reviewed interim history and current functioning. Reviewed vital signs,~Labs/ Radiology~and current medications noted below. Continue current treatment with the changes noted in the dictated addendum note Assessment: Vital Signs: Vital Signs Date Time Temp Pulse Resp B/P (MAP) Pulse Ox O2 Delivery O2 Flow Rate FiO2 09/29/16 16:05 98.0 65 20 102/57 (72) 95 09/27/16 16:16 Room Air I&O Intake and Output 09/29/16 07:00 Intake Total 1080 ml Balance 1080 ml Intake Oral 1080 ml # Bowel Movements 2 Current Medications: Meds: Current Medications Acetaminophen (Tylenol) 650 mg PRN Q6HRS PRN PO PAIN / TEMP Last administered on 09/23/16 02:46; Start 09/22/16 at 21:15 Multi-Ingredient Ointment (Analgesic [place]) 1 toney PRN QID PRN TP MUSCLE PAIN; Start 09/22/16 at 21:15 Al Hydroxide/Mg Hydroxide (Mylanta Plus Xs) 15 ml PRN AFTMEALHC PRN PO DYSPEPSIA; Start 09/22/16 at 21:15; Status Cancel Magnesium Hydroxide (Milk Of Magnesia) 2,400 mg PRN QHS PRN PO CONSTIPATION; Start 09/22/16 at 21:15 Alprazolam (Xanax) 0.25 mg PRN TID PRN PO ANXIETY / AGITATION Last administered on 09/29/16 17:57; Start 09/22/16 at 22:15 Citalopram Hydrobromide (CeleXA) 40 mg DAILY PO Last administered on 09/23/16 08:02; Start 09/23/16 at 09:00; Stop 09/23/16 at 18:27; Status DC Acetaminophen (Tylenol) 500 mg PRN TID PRN PO PAIN / TEMP; Start 09/22/16 at 22 :15 Atenolol (Tenormin) 25 mg DAILY PO Last administered on 09/29/16 08:11; Start 09/23/16 at 09:00 Bisacodyl (Dulcolax Supp) 10 mg PRN DAILY PRN RC CONSTIPATION; Start 09/22/16 at 22:15 Calcium Carbonate/ Glycine (Tums) 500 mg PRN TID PRN PO HEARTBURN / GAS; Start 09/22/16 at 22:15 Carbidopa/Levodopa (Sinemet 25/100) 1 tab BID PO Last administered on 08:12; Start 09/23/16 at 09:00 Cyclosporine (Restasis) 1 drop BID OU Last administered on 09/29/16 08:14; Start 09/23/16 at 09:00 Levothyroxine Sodium (Synthroid) 88 mcg DAILYAC PO Last administered on 08:11; Start 09/23/16 at 07:30 Al Hydroxide/Mg Hydroxide (Mylanta Plus Xs) 15 ml PRN TID PRN PO INDIGESTION; Start 09/22/16 at 22:15 Polyethylene Glycol (miraLAX) 8.5 gm HS PO Last administered on 09/28/16 20:29 ; Start 09/23/16 at 21:00 Pravastatin Sodium (Pravachol) 20 mg DAILY PO Last administered on 09/29/16 08 :11; Start 09/23/16 at 09:00 Sennosides (Senna) 8.6 mg HS PO Last administered on 09/28/16 20:28; Start at 21:00 Tramadol HCl (Ultram) 50 mg PRN Q6HRS PRN PO PAIN; Start 09/22/16 at 22:15 Warfarin Sodium (Coumadin) 6 mg DAILY16 PO ; Start 09/23/16 at 16:00; Stop 09/23 at 16:14; Status DC Non-Formulary Medication 650 mg PRN TID PRN PO PAIN / TEMP; Start 09/22/16 at 22:15; Status UNV Vitamin D (Vitamin D3) 5,000 unit DAILY PO Last administered on 09/29/16 08:12 ; Start 09/23/16 at 09:00 Oxybutynin Chloride (Ditropan) 5 mg BID PO Last administered on 09/29/16 08:12 ; Start 09/23/16 at 09:00 Lactobacillus Rhamnosus (Culturelle) 1 cap DAILY PO Last administered on 08:03; Start 09/23/16 at 09:00; Stop 09/24/16 at 10:00; Status DC Losartan Potassium (Cozaar) 100 mg DAILY PO Last administered on 09/29/16 08: 12; Start 09/23/16 at 09:00 Non-Formulary Medication 2,400 mg PRN DAILY PRN PO CONSTIPATION; Start at 22:15; Status UNV Melatonin 3 mg HS PO Last administered on 09/28/16 20:28; Start 09/23/16 at 21 :00 Nitrofurantoin Macrocrystals (Macrobid) 100 mg BID PO Last administered on 09/25 19:40; Start 09/23/16 at 09:00; Stop 09/25/16 at 22:00; Status DC Artificial Tears (Artificial Tears) 1 drop PRN Q4HRS PRN OU DRY EYE; Start at 23:00 Non-Formulary Medication 1 toney DAILY DT ; Start 09/23/16 at 09:00; Status UNV Sodium Chloride (Kelly) 0.25 inch HS OU Last administered on 09/28/16 20:29; Start 09/23/16 at 21:00 Warfarin Sodium (Coumadin Per Physician) 1 each PRN DAILY PRN MC SEE COMMENTS; Start 09/22/16 at 23:00 Duloxetine HCl (Cymbalta) 30 mg DAILY PO Last administered on 09/27/16 07:35; Start 09/24/16 at 09:00; Stop 09/28/16 at 00:30; Status DC Mirtazapine (Remeron) 7.5 mg QHS PO Last administered on 09/28/16 20:28; Start 09/23/16 at 21:00 Quetiapine Fumarate (SEROquel) 12.5 mg DAILY PO Last administered on 09/27/16 07:36; Start 09/26/16 at 09:00; Stop 09/27/16 at 22:11; Status DC Warfarin Sodium (Coumadin) 4 mg 1X ONCE PO Last administered on 09/27/16 22: 47; Start 09/27/16 at 23:00; Stop 09/27/16 at 23:01; Status DC Quetiapine Fumarate (SEROquel) 12.5 mg TID PO Last administered on 09/28/16 20 :31; Start 09/28/16 at 09:00; Stop 09/28/16 at 21:01; Status DC Duloxetine HCl (Cymbalta) 60 mg DAILY PO Last administered on 09/29/16 08:12; Start 09/28/16 at 09:00 Quetiapine Fumarate (SEROquel) 12.5 mg BID@0900,1700 PO Last administered on 16:59; Start 09/29/16 at 09:00 Quetiapine Fumarate (SEROquel) 25 mg DAILY@1400 PO Last administered on 14:04; Start 09/29/16 at 14:00 Active Scripts Active Reported Citalopram Hbr (Citalopram Hydrobromide) 40 Mg Tablet 40 Mg PO DAILY Xanax (Alprazolam) 0.25 Mg Tablet 0.25 Mg PO PRN TID PRN Macrodantin (Nitrofurantoin Macrocrystal) 100 Mg Capsule 100 Mg PO BID 3 Days Culturelle (Lactobacillus Rhamnosus Gg) 1 Each Capsule 1 Each PO DAILY 2 Days Acetaminophen Er (Acetaminophen) 650 Mg Tablet.er 650 Mg PO PRN TID PRN Toviaz (Fesoterodine Fumarate) 4 Mg Tab.er.24h 4 Mg PO DAILY Systane Ultra 0.4-0.3% Eye Drp (Propylene Glycol/Peg 400) 10 Ml Drops 1 Drop OU PRN Q4HRS PRN Bisacodyl 10 Mg Supp.rect 10 Mg RC PRN DAILY PRN Coumadin (Warfarin Sodium) 6 Mg Tablet 6 Mg PO DAILY Senna Lax (Sennosides) 8.6 Mg Tablet 8.6 Mg PO HS Polyethylene Glycol 3350 17 Gm Powd.pack 0.5 Packet PO HS PRN Maalox Maximum Strength Susp (Mag Hydrox/Al Hydrox/Simeth) 355 Ml Oral.susp 15 Ml PO PRN TID PRN Acetaminophen 500 Mg Tablet 500 Mg PO PRN TID PRN Tramadol Hcl (Tramadol HCl) 50 Mg Tablet 50 Mg PO PRN Q6HRS PRN Synthroid (Levothyroxine Sodium) 88 Mcg Tablet 88 Mcg PO DAILYAC Melatonin 3 Mg Tablet 3 Mg PO HS Prevident 5000 (Sodium Fluoride) 100 Ml Gel..ml. 1 Toney DT DAILY Calcium Carbonate 500 Mg Tablet 500 Mg PO PRN TID PRN Milk Of Magnesia (Magnesium Hydroxide) 2,400 Mg/10 Ml Oral.susp 2,400 Mg PO PRN DAILY PRN Restasis (Cyclosporine) 1 Each Droperette 1 Each OU BID Losartan Potassium 100 Mg Tablet 100 Mg PO DAILY Sinemet 25-100 Mg Tablet (Carbidopa/Levodopa) 1 Each Tablet 1 Each PO BID Vitamin D (Cholecalciferol (Vitamin D3)) 5,000 Unit Tablet 5,000 Unit PO DAILY [sodium chloride 5%] Oint..gm. 1 Toney OU HS Pravastatin Sodium 20 Mg Tablet 20 Mg PO DAILY Atenolol 25 Mg Tablet 25 Mg PO DAILY Diagnosis: Problems: (1) Impulse control disorder (2) Major depressive disorder, recurrent episode (3) Psychotic depression (4) Anxiety disorder (5) Dementia, vascular, with depression ARIANE WASHBURN MD Sep 29, 2016 18:45
[2016-09-29] MEDS: SENNOSIDES 8.6 MG TABLET PO SCH (19:39)
[2016-09-29] MEDS: MIRTAZAPINE 7.5 MG TABLET. PO SCH (19:39)
[2016-09-29] MEDS: MELATONIN 3 MG TABLET PO SCH (19:40)
[2016-09-29] MEDS: SODIUM CHLORIDE 5% OPHTH OINTMENT 3.5GM TUBE. OU SCH (19:41)
[2016-09-29] MEDS: POLYETHYLENE GLYCOL 3350 17 GM PACKET. PO SCH (19:41)
--- NOTE | 2016-09-30 02:18 | NUR ---
Behavior Intervention Response and Plan: BIRP Note: Behavior: Assumed Care of patient, patient located in Patient Room at shift change. Patient exhibited the following behavior Calm, Compliant, Cooperative. Brief assessment on rounds of vital signs, medication needs, lab studies, and pain. Treatment plan problems Altered thought process and fall risk. Intervention: Patient assessed and the following interventions initiated safety checks 15 Minute Checks Cognitive Assessment , Medications , Oral Hydration. Response: After interactions and interventions patient responded in the following manner, Calm , Compliant ,Cooperative. Continue to assess behaviors and condition will continue to monitor throughout the shift as needed. Patient educated on ADL's, and hand hygiene. 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 Continue to assess patient for changes in above assessment. Monitor for medication needs, pain, and safety concerns. Hourly rounding performed to ensure safe environment.
--- NOTE | 2016-09-30 03:45 | PN ---
DATE: 09/28/2016 This is a late entry 09/28/2016, covers elements not covered in my initial note. SUBJECTIVE: I met with the patient at great length the evening of 09/28/2016 on two separate occasions that she came back after the initial visit, had further questions about her psychotropics, discharge plans, what other activities she can do while she is in the hospital and what she should do once she leaves the hospital. I met with the patient evening of 09/28/2016. REVIEW OF SYSTEMS: Ambulation impaired with walker. No CV, , pulmonary, eye, ENT system symptoms on review. MENTAL STATUS EXAMINATION: Reasonably oriented. Previous evening, she was quite hyper-mandaen, anxious, repetitive, abstraction fair, computation impaired, language function intact. Mood and affect anxious, obsessive, ruminative. No active suicidal or homicidal ideation. IMPRESSION: Unchanged from initial note. PLAN: Increase the Seroquel from 12.5 mg 3 times a day to 12.5 mg at 9:00 a.m. and 1700 and 25 mg at 1400, starting on 09/29/2016, adjust further as clinically indicated. Rest unchanged. Reviewed drug interactions, risks/benefit ratio at length. ARIANE WASHBURN MD DR: MARCIAL/reynaldo JOB#: [id number] / [id number]
[2016-09-30 06:10] VITALS: BP 139/69
--- NOTE | 2016-09-30 08:20 | NUR ---
Patient in bed, stating just le me , refusing to get out of bed. After several minutes, convinced patient to get up for breakfast. Female nurse assisted patient in getting dressed and down to dining room.
[2016-09-30] MEDS: LEVOTHYROXINE 88 MCG TABLET PO SCH (09:01)
[2016-09-30] MEDS: OXYBUTYNIN CHLORIDE 5 MG TABLET PO SCH ×2 (09:01→20:22)
[2016-09-30] MEDS: cycloSPORINE 0.05% OPTH 1 DROP DROPERETTE OU SCH ×2 (09:01→20:22)
[2016-09-30] MEDS: DULoxetine HCL 60 MG CAPSULE.DR PO SCH (09:03)
[2016-09-30] MEDS: QUEtiapine 25 MG TABLET. PO SCH ×3 (09:03→17:34)
[2016-09-30] MEDS: PRAVASTATIN 20 MG TABLET. PO SCH (09:03)
[2016-09-30] MEDS: ATENOLOL 25 MG TABLET PO SCH (09:03)
[2016-09-30] MEDS: CHOLECALCIFEROL (VITAMIN D3) 1,000 UNIT TABLET PO SCH (09:03)
[2016-09-30] MEDS: LOSARTAN 50 MG TABLET. PO SCH (09:03)
[2016-09-30] MEDS: CARBIDOPA/LEVODOPA 25/100MG TABLET PO SCH ×2 (09:03→20:22)
--- NOTE | 2016-09-30 09:10 | NUR ---
Behavior Intervention Response and Plan: BIRP Note: Behavior: Assumed Care of patient, patient located in Patient Room at shift change. Patient exhibited the following behavior Disorganized, Attention Seeking, Resistive. Brief assessment on rounds of vital signs, medication needs, lab studies, and pain. Treatment plan problems 1 & 2. Intervention: Patient assessed and the following interventions initiated safety checks 15 Minute Checks Cognitive Assessment , Head to toe Assessment , Medications. Response: After interactions and interventions patient responded in the following manner, Calm , Appropriate ,Compliant. Continue to assess behaviors and condition will continue to monitor throughout the shift as needed. Patient educated on ADL's, and hand hygiene. Plan: Continue to monitor Master Treatment Plan for patient's progress toward short term goals of Decreased Agitation, Decreased Anxiety, rn long term care goals to return to previous living setting vs placement. Continue to assess patient for changes in above assessment. Monitor for medication needs, pain, and safety concerns. Hourly rounding performed to ensure safe environment.
--- NOTE | 2016-09-30 09:15 | NUR ---
THERAPEUTIC RECREATION GROUP NOTE TITLE :Ball Bounce and Black Magic ACTIVITY : Activities and Games GOAL : Increase alertness, focus, morale, decrease stress DURATION : 45 Minutes RESPONSE : No participation.
--- NOTE | 2016-09-30 11:30 | NUR ---
THERAPEUTIC RECREATION GROUP NOTE TITLE :Movement to Music: Flexibility ACTIVITY : Movement/ Exercise GOAL : Increase morale, attention, flexibility. Decrease stress/anxiety. DURATION : 30 Minutes RESPONSE : No participation.
--- NOTE | 2016-09-30 14:15 | NUR ---
THERAPEUTIC RECREATION GROUP NOTE TITLE :The Cup Challenger (Rubber Band with strings) ACTIVITY : Activities and Games GOAL : Increase alertness, focus, morale, decrease stress, team building, positive communication DURATION : 60 Minutes RESPONSE : No participation.
[2016-09-30 16:25] VITALS: BP 119/85
--- NOTE | 2016-09-30 18:29 | PDOC ---
Exam Kj Demential Exam: Kj Note: Please also refer to the separate dictated note~for this date of service dictated separately.~Patient seen individually. Discussed the patient with Nursing staff reviewed the chart.~Reviewed interim history and current functioning. Reviewed vital signs,~Labs/ Radiology~and current medications noted below. Continue current treatment with the changes noted in the dictated addendum note Assessment: Vital Signs: Vital Signs Date Time Temp Pulse Resp B/P (MAP) Pulse Ox O2 Delivery O2 Flow Rate FiO2 09/30/16 16:25 97.8 60 19 119/85 (96) 96 09/27/16 16:16 Room Air I&O Intake and Output 09/30/16 07:00 Intake Total 900 ml Balance 900 ml Intake Oral 900 ml Current Medications: Meds: Current Medications Acetaminophen (Tylenol) 650 mg PRN Q6HRS PRN PO PAIN / TEMP Last administered on 09/23/16 02:46; Start 09/22/16 at 21:15 Multi-Ingredient Ointment (Analgesic [place]) 1 toney PRN QID PRN TP MUSCLE PAIN; Start 09/22/16 at 21:15 Al Hydroxide/Mg Hydroxide (Mylanta Plus Xs) 15 ml PRN AFTMEALHC PRN PO DYSPEPSIA; Start 09/22/16 at 21:15; Status Cancel Magnesium Hydroxide (Milk Of Magnesia) 2,400 mg PRN QHS PRN PO CONSTIPATION; Start 09/22/16 at 21:15 Alprazolam (Xanax) 0.25 mg PRN TID PRN PO ANXIETY / AGITATION Last administered on 09/29/16 17:57; Start 09/22/16 at 22:15 Citalopram Hydrobromide (CeleXA) 40 mg DAILY PO Last administered on 09/23/16 08:02; Start 09/23/16 at 09:00; Stop 09/23/16 at 18:27; Status DC Acetaminophen (Tylenol) 500 mg PRN TID PRN PO PAIN / TEMP; Start 09/22/16 at 22 :15 Atenolol (Tenormin) 25 mg DAILY PO Last administered on 09/30/16 09:03; Start 09/23/16 at 09:00 Bisacodyl (Dulcolax Supp) 10 mg PRN DAILY PRN RC CONSTIPATION; Start 09/22/16 at 22:15 Calcium Carbonate/ Glycine (Tums) 500 mg PRN TID PRN PO HEARTBURN / GAS; Start 09/22/16 at 22:15 Carbidopa/Levodopa (Sinemet 25/100) 1 tab BID PO Last administered on 09:03; Start 09/23/16 at 09:00 Cyclosporine (Restasis) 1 drop BID OU Last administered on 09/30/16 09:01; Start 09/23/16 at 09:00 Levothyroxine Sodium (Synthroid) 88 mcg DAILYAC PO Last administered on 09:01; Start 09/23/16 at 07:30 Al Hydroxide/Mg Hydroxide (Mylanta Plus Xs) 15 ml PRN TID PRN PO INDIGESTION; Start 09/22/16 at 22:15 Polyethylene Glycol (miraLAX) 8.5 gm HS PO Last administered on 09/29/16 19:41 ; Start 09/23/16 at 21:00 Pravastatin Sodium (Pravachol) 20 mg DAILY PO Last administered on 09/30/16 09 :03; Start 09/23/16 at 09:00 Sennosides (Senna) 8.6 mg HS PO Last administered on 09/29/16 19:39; Start at 21:00 Tramadol HCl (Ultram) 50 mg PRN Q6HRS PRN PO PAIN; Start 09/22/16 at 22:15 Warfarin Sodium (Coumadin) 6 mg DAILY16 PO ; Start 09/23/16 at 16:00; Stop 09/23 at 16:14; Status DC Non-Formulary Medication 650 mg PRN TID PRN PO PAIN / TEMP; Start 09/22/16 at 22:15; Status UNV Vitamin D (Vitamin D3) 5,000 unit DAILY PO Last administered on 09/30/16 09:03 ; Start 09/23/16 at 09:00 Oxybutynin Chloride (Ditropan) 5 mg BID PO Last administered on 09/30/16 09:01 ; Start 09/23/16 at 09:00 Lactobacillus Rhamnosus (Culturelle) 1 cap DAILY PO Last administered on 08:03; Start 09/23/16 at 09:00; Stop 09/24/16 at 10:00; Status DC Losartan Potassium (Cozaar) 100 mg DAILY PO Last administered on 09/30/16 09: 03; Start 09/23/16 at 09:00 Non-Formulary Medication 2,400 mg PRN DAILY PRN PO CONSTIPATION; Start at 22:15; Status UNV Melatonin 3 mg HS PO Last administered on 09/29/16 19:40; Start 09/23/16 at 21 :00 Nitrofurantoin Macrocrystals (Macrobid) 100 mg BID PO Last administered on 09/25 19:40; Start 09/23/16 at 09:00; Stop 09/25/16 at 22:00; Status DC Artificial Tears (Artificial Tears) 1 drop PRN Q4HRS PRN OU DRY EYE; Start at 23:00 Non-Formulary Medication 1 toney DAILY DT ; Start 09/23/16 at 09:00; Status UNV Sodium Chloride (Kelly) 0.25 inch HS OU Last administered on 09/29/16 19:41; Start 09/23/16 at 21:00 Warfarin Sodium (Coumadin Per Physician) 1 each PRN DAILY PRN MC SEE COMMENTS; Start 09/22/16 at 23:00 Duloxetine HCl (Cymbalta) 30 mg DAILY PO Last administered on 09/27/16 07:35; Start 09/24/16 at 09:00; Stop 09/28/16 at 00:30; Status DC Mirtazapine (Remeron) 7.5 mg QHS PO Last administered on 09/29/16 19:39; Start 09/23/16 at 21:00 Quetiapine Fumarate (SEROquel) 12.5 mg DAILY PO Last administered on 09/27/16 07:36; Start 09/26/16 at 09:00; Stop 09/27/16 at 22:11; Status DC Warfarin Sodium (Coumadin) 4 mg 1X ONCE PO Last administered on 09/27/16 22: 47; Start 09/27/16 at 23:00; Stop 09/27/16 at 23:01; Status DC Quetiapine Fumarate (SEROquel) 12.5 mg TID PO Last administered on 09/28/16 20 :31; Start 09/28/16 at 09:00; Stop 09/28/16 at 21:01; Status DC Duloxetine HCl (Cymbalta) 60 mg DAILY PO Last administered on 09/30/16 09:03; Start 09/28/16 at 09:00 Quetiapine Fumarate (SEROquel) 12.5 mg BID@0900,1700 PO Last administered on 17:34; Start 09/29/16 at 09:00 Quetiapine Fumarate (SEROquel) 25 mg DAILY@1400 PO Last administered on 13:58; Start 09/29/16 at 14:00 Active Scripts Active Reported Citalopram Hbr (Citalopram Hydrobromide) 40 Mg Tablet 40 Mg PO DAILY Xanax (Alprazolam) 0.25 Mg Tablet 0.25 Mg PO PRN TID PRN Macrodantin (Nitrofurantoin Macrocrystal) 100 Mg Capsule 100 Mg PO BID 3 Days Culturelle (Lactobacillus Rhamnosus Gg) 1 Each Capsule 1 Each PO DAILY 2 Days Acetaminophen Er (Acetaminophen) 650 Mg Tablet.er 650 Mg PO PRN TID PRN Toviaz (Fesoterodine Fumarate) 4 Mg Tab.er.24h 4 Mg PO DAILY Systane Ultra 0.4-0.3% Eye Drp (Propylene Glycol/Peg 400) 10 Ml Drops 1 Drop OU PRN Q4HRS PRN Bisacodyl 10 Mg Supp.rect 10 Mg RC PRN DAILY PRN Coumadin (Warfarin Sodium) 6 Mg Tablet 6 Mg PO DAILY Senna Lax (Sennosides) 8.6 Mg Tablet 8.6 Mg PO HS Polyethylene Glycol 3350 17 Gm Powd.pack 0.5 Packet PO HS PRN Maalox Maximum Strength Susp (Mag Hydrox/Al Hydrox/Simeth) 355 Ml Oral.susp 15 Ml PO PRN TID PRN Acetaminophen 500 Mg Tablet 500 Mg PO PRN TID PRN Tramadol Hcl (Tramadol HCl) 50 Mg Tablet 50 Mg PO PRN Q6HRS PRN Synthroid (Levothyroxine Sodium) 88 Mcg Tablet 88 Mcg PO DAILYAC Melatonin 3 Mg Tablet 3 Mg PO HS Prevident 5000 (Sodium Fluoride) 100 Ml Gel..ml. 1 Toney DT DAILY Calcium Carbonate 500 Mg Tablet 500 Mg PO PRN TID PRN Milk Of Magnesia (Magnesium Hydroxide) 2,400 Mg/10 Ml Oral.susp 2,400 Mg PO PRN DAILY PRN Restasis (Cyclosporine) 1 Each Droperette 1 Each OU BID Losartan Potassium 100 Mg Tablet 100 Mg PO DAILY Sinemet 25-100 Mg Tablet (Carbidopa/Levodopa) 1 Each Tablet 1 Each PO BID Vitamin D (Cholecalciferol (Vitamin D3)) 5,000 Unit Tablet 5,000 Unit PO DAILY [sodium chloride 5%] Oint..gm. 1 Toney OU HS Pravastatin Sodium 20 Mg Tablet 20 Mg PO DAILY Atenolol 25 Mg Tablet 25 Mg PO DAILY Diagnosis: Problems: (1) Impulse control disorder (2) Major depressive disorder, recurrent episode (3) Psychotic depression (4) Dementia, vascular, with depression (5) Anxiety disorder ARIANE WASHBURN MD Sep 30, 2016 18:29
[2016-09-30] MEDS: SENNOSIDES 8.6 MG TABLET PO SCH (20:22)
[2016-09-30] MEDS: MELATONIN 3 MG TABLET PO SCH (20:22)
[2016-09-30] MEDS: MIRTAZAPINE 7.5 MG TABLET. PO SCH (20:22)
[2016-09-30] MEDS: POLYETHYLENE GLYCOL 3350 17 GM PACKET. PO SCH (20:22)
[2016-09-30] MEDS: SODIUM CHLORIDE 5% OPHTH OINTMENT 3.5GM TUBE. OU SCH (20:24)
--- NOTE | 2016-09-30 23:30 | NUR ---
Behavior Intervention Response and Plan: BIRP Note: Behavior: Assumed Care of patient, patient located in Day Room at shift change. Patient exhibited the following behavior Disorganized, Demanding, Compliant. Brief assessment on rounds of vital signs, medication needs, lab studies, and pain. Treatment plan problems 1 & 2. Intervention: Patient assessed and the following interventions initiated safety checks 15 Minute Checks Cognitive Assessment , Head to toe Assessment , Medications. Response: After interactions and interventions patient responded in the following manner, Calm , Appropriate ,Cooperative. Continue to assess behaviors and condition will continue to monitor throughout the shift as needed. Patient educated on ADL's, and hand hygiene. 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 Continue to assess patient for changes in above assessment. Monitor for medication needs, pain, and safety concerns. Hourly rounding performed to ensure safe environment.
[2016-10-01 06:14] VITALS: BP 133/77
--- NOTE | 2016-10-01 08:27 | PN ---
DATE: 09/30/2016 This is a late entry on 09/29/2016 covers elements not covered in my initial note. I met with the patient at length on the evening of 09/29/2016. I also returned a telephone call from the patient's son, Mahendra, . Mahendra had previously sent a 4-page email about the many questions he had regarding the patient's diagnosis, medications, aftercare plans, prognosis, activity she does in groups and many other questions. We had a very lengthy conversation and I discussed all of the above and gathered further historical information. She remains cognitively reasonably intact, but depressed, anxious, repetitive, negative, crying at times, more confused on morning of 09/29/2016, withdrawn to her room. Repeatedly asking "what are you going to do." What I do I need to do and making vague statements of "I would be better off ." She received Ativan p.r.n., still hyper episcopalian at times. REVIEW OF SYSTEMS: Ambulation impaired with walker, no CV, , pulmonary, ENT system symptoms on review. Reliability poor. MENTAL STATUS EXAMINATION: Oriented, reasonably well. Speech, coherent. Abstraction, fair. Computation, impaired. Language function intact. Attention span, short mood and affect still depressed, showing improvement, anxious, obsessive and repetitive. No active suicidal or homicidal ideation. LABORATORY DATA: Reviewed. IMPRESSION: Unchanged from initial note. PLAN: Continue current psychotropics and we may need to increase Seroquel in due course. I have discussed with the son that Seroquel should be tapered when she is stable back at the nursing facility. Reviewed drug interactions, risks and benefits ratio, favors no further changes at this time. MAN Ruben WASHBURN MD DR: MARCIAL/reynaldo JOB#: [id number] / [id number]
[2016-10-01] MEDS: cycloSPORINE 0.05% OPTH 1 DROP DROPERETTE OU SCH ×2 (08:57→20:29)
[2016-10-01] MEDS: LEVOTHYROXINE 88 MCG TABLET PO SCH (08:58)
[2016-10-01] MEDS: LOSARTAN 50 MG TABLET. PO SCH (08:58)
[2016-10-01] MEDS: PRAVASTATIN 20 MG TABLET. PO SCH (08:58)
[2016-10-01] MEDS: DULoxetine HCL 60 MG CAPSULE.DR PO SCH (08:58)
[2016-10-01] MEDS: CHOLECALCIFEROL (VITAMIN D3) 1,000 UNIT TABLET PO SCH (08:58)
[2016-10-01] MEDS: OXYBUTYNIN CHLORIDE 5 MG TABLET PO SCH ×2 (08:58→20:28)
[2016-10-01] MEDS: QUEtiapine 25 MG TABLET. PO SCH ×3 (08:58→16:53)
[2016-10-01] MEDS: ATENOLOL 25 MG TABLET PO SCH (08:59)
[2016-10-01] MEDS: CARBIDOPA/LEVODOPA 25/100MG TABLET PO SCH ×2 (08:59→20:28)
--- NOTE | 2016-10-01 10:00 | NUR ---
THERAPEUTIC RECREATION GROUP NOTE TITLE :[place]- Led by Richard ACTIVITY : Activities and Games GOAL : Increase alertness, focus, morale, decrease stress, team building, positive communication DURATION : 60 Minutes RESPONSE : No participation.
--- NOTE | 2016-10-01 11:30 | NUR ---
THERAPEUTIC RECREATION GROUP NOTE TITLE :Movement to Music: Strength ACTIVITY : Movement/ Exercise GOAL : Increase morale, attention, flexibility. Decrease stress/anxiety. DURATION : 30 Minutes RESPONSE : Full participation. Pt. was alert and focused the entire time. She took breaks as needed and needed no prompting to stay on task.
--- NOTE | 2016-10-01 14:00 | NUR ---
THERAPEUTIC RECREATION GROUP NOTE TITLE :Song Zina Interpretation ACTIVITY : Music, Cognitive Stimulation GOAL : Increase socialization, elevate mood, stimulate memory. Maintain or improve cognitive functioning and memory. DURATION : 90 Minutes RESPONSE : Full participation. Pt. join about 15 minutes late and was confused about the point of the session. RELATIONS MANAGER and others explained and she occasionally needed reminders as the session continued. Pt. contributed to the conversation and after the session reported to RELATIONS MANAGER she was starting to feel better.
--- NOTE | 2016-10-01 15:52 | NUR ---
Pharmacy Warfarin Dosing Note S:Pharmacy consulted to assist with anticoagulation therapy started 10/01/16 with target INR: 2 -3 O:CIERRA MOSS is a 85 year old F with Atrial Fibrillation LABS: Last INR: 1.1 Last HGB: 10 Last HCT: 29.1 Last PLT: 254 Last dose of 4 mg given on 09/27/16 at 2300 Previous Regimen: 6MG DAILY Vitamin K given: N Drug Interaction Changes: Same Interacting Drug Ongoing Drug Interactions: A:INR Below desired Range. Target Range for this patient is: 2 -3 P: Warfarin dose: 5 mg Today at 1600 Bridge Therapy: None Next INR due 10/02/16 @ 0600 Pharmacy anticoagulation service will continue to follow. CASSANDRA SERNA [facility], 10/01/16 [id number]
--- NOTE | 2016-10-01 15:57 | NUR ---
CON spoke w/Orly from [facility] regarding dc plans for Wednesday. CON will send skilled orders for Pt. to dc to [facility]. CON spoke w/Zhou, Pt's son, regarding dc plans and follow up appointments. Zhou is in town from [place] and will discuss transport arrangements w/his brother for Wednesday and call this SW later this evening w/a time.
[2016-10-01] MEDS ORDERED: WARFARIN 5 MG TABLET. PO ONE (16:00)
[2016-10-01 16:12] VITALS: BP 132/80
[2016-10-01] MEDS ORDERED: SALIVA STIMULANT AGENT MOUTHWASH 237ML BOTTLE. PO PRN (16:15)
--- NOTE | 2016-10-01 16:22 | NUR ---
Behavior Intervention Response and Plan: BIRP Note: Behavior: Assumed Care of patient, patient located in Dining Room at shift change. Patient exhibited the following behavior Calm, Disorganized, Restless. Brief assessment on rounds of vital signs, medication needs, lab studies, and pain. Treatment plan problems . Intervention: Patient assessed and the following interventions initiated safety checks 15 Minute Checks Cognitive Assessment , Head to toe Assessment , Medications. Response: After interactions and interventions patient responded in the following manner, Calm , Compliant ,Restless. Continue to assess behaviors and condition will continue to monitor throughout the shift as needed. Patient educated on ADL's, and hand hygiene. Plan: Continue to monitor Master Treatment Plan for patient's progress toward short term goals of Improved Mood, No harm To self/ others, intermediate goals to return to previous living setting vs placement. Continue to assess patient for changes in above assessment. Monitor for medication needs, pain, and safety concerns. Hourly rounding performed to ensure safe environment.
[2016-10-01] MEDS: MIRTAZAPINE 7.5 MG TABLET. PO SCH (20:28)
[2016-10-01] MEDS: MELATONIN 3 MG TABLET PO SCH (20:28)
[2016-10-01] MEDS: SENNOSIDES 8.6 MG TABLET PO SCH (20:28)
[2016-10-01] MEDS: POLYETHYLENE GLYCOL 3350 17 GM PACKET. PO SCH (20:29)
[2016-10-01] MEDS: SODIUM CHLORIDE 5% OPHTH OINTMENT 3.5GM TUBE. OU SCH (20:30)
--- NOTE | 2016-10-01 20:37 | PDOC ---
Exam Kj Demential Exam: Kj Note: Please also refer to the separate dictated note~for this date of service dictated separately.~Patient seen individually. Discussed the patient with Nursing staff reviewed the chart.~Reviewed interim history and current functioning. Reviewed vital signs,~Labs/ Radiology~and current medications noted below. Continue current treatment with the changes noted in the dictated addendum note Assessment: Vital Signs: Vital Signs Date Time Temp Pulse Resp B/P (MAP) Pulse Ox O2 Delivery O2 Flow Rate FiO2 10/01/16 16:12 98.7 60 18 132/80 (97) 96 09/27/16 16:16 Room Air I&O Intake and Output 10/01/16 07:00 Intake Total 720 ml Balance 720 ml Intake Oral 720 ml Current Medications: Meds: Current Medications Acetaminophen (Tylenol) 650 mg PRN Q6HRS PRN PO PAIN / TEMP Last administered on 09/23/16 02:46; Start 09/22/16 at 21:15 Multi-Ingredient Ointment (Analgesic [place]) 1 toney PRN QID PRN TP MUSCLE PAIN; Start 09/22/16 at 21:15 Al Hydroxide/Mg Hydroxide (Mylanta Plus Xs) 15 ml PRN AFTMEALHC PRN PO DYSPEPSIA; Start 09/22/16 at 21:15; Status Cancel Magnesium Hydroxide (Milk Of Magnesia) 2,400 mg PRN QHS PRN PO CONSTIPATION; Start 09/22/16 at 21:15 Alprazolam (Xanax) 0.25 mg PRN TID PRN PO ANXIETY / AGITATION Last administered on 09/29/16 17:57; Start 09/22/16 at 22:15 Citalopram Hydrobromide (CeleXA) 40 mg DAILY PO Last administered on 09/23/16 08:02; Start 09/23/16 at 09:00; Stop 09/23/16 at 18:27; Status DC Acetaminophen (Tylenol) 500 mg PRN TID PRN PO PAIN / TEMP; Start 09/22/16 at 22 :15 Atenolol (Tenormin) 25 mg DAILY PO Last administered on 10/01/16 08:59; Start 09/23/16 at 09:00 Bisacodyl (Dulcolax Supp) 10 mg PRN DAILY PRN RC CONSTIPATION; Start 09/22/16 at 22:15 Calcium Carbonate/ Glycine (Tums) 500 mg PRN TID PRN PO HEARTBURN / GAS; Start 09/22/16 at 22:15 Carbidopa/Levodopa (Sinemet 25/100) 1 tab BID PO Last administered on 20:28; Start 09/23/16 at 09:00 Cyclosporine (Restasis) 1 drop BID OU Last administered on 10/01/16 20:29; Start 09/23/16 at 09:00 Levothyroxine Sodium (Synthroid) 88 mcg DAILYAC PO Last administered on 08:58; Start 09/23/16 at 07:30 Al Hydroxide/Mg Hydroxide (Mylanta Plus Xs) 15 ml PRN TID PRN PO INDIGESTION; Start 09/22/16 at 22:15 Polyethylene Glycol (miraLAX) 8.5 gm HS PO Last administered on 10/01/16 20:29 ; Start 09/23/16 at 21:00 Pravastatin Sodium (Pravachol) 20 mg DAILY PO Last administered on 10/01/16 08 :58; Start 09/23/16 at 09:00 Sennosides (Senna) 8.6 mg HS PO Last administered on 10/01/16 20:28; Start at 21:00 Tramadol HCl (Ultram) 50 mg PRN Q6HRS PRN PO PAIN; Start 09/22/16 at 22:15 Warfarin Sodium (Coumadin) 6 mg DAILY16 PO ; Start 09/23/16 at 16:00; Stop 09/23 at 16:14; Status DC Non-Formulary Medication 650 mg PRN TID PRN PO PAIN / TEMP; Start 09/22/16 at 22:15; Status UNV Vitamin D (Vitamin D3) 5,000 unit DAILY PO Last administered on 10/01/16 08:58 ; Start 09/23/16 at 09:00 Oxybutynin Chloride (Ditropan) 5 mg BID PO Last administered on 10/01/16 20:28 ; Start 09/23/16 at 09:00 Lactobacillus Rhamnosus (Culturelle) 1 cap DAILY PO Last administered on 08:03; Start 09/23/16 at 09:00; Stop 09/24/16 at 10:00; Status DC Losartan Potassium (Cozaar) 100 mg DAILY PO Last administered on 10/01/16 08: 58; Start 09/23/16 at 09:00 Non-Formulary Medication 2,400 mg PRN DAILY PRN PO CONSTIPATION; Start at 22:15; Status UNV Melatonin 3 mg HS PO Last administered on 10/01/16 20:28; Start 09/23/16 at 21 :00 Nitrofurantoin Macrocrystals (Macrobid) 100 mg BID PO Last administered on 09/25 19:40; Start 09/23/16 at 09:00; Stop 09/25/16 at 22:00; Status DC Artificial Tears (Artificial Tears) 1 drop PRN Q4HRS PRN OU DRY EYE Last administered on 09/30/16 20:22; Start 09/22/16 at 23:00 Non-Formulary Medication 1 toney DAILY DT ; Start 09/23/16 at 09:00; Status UNV Sodium Chloride (Kelly) 0.25 inch HS OU Last administered on 10/01/16 20:30; Start 09/23/16 at 21:00 Warfarin Sodium (Coumadin Per Physician) 1 each PRN DAILY PRN MC SEE COMMENTS; Start 09/22/16 at 23:00; Stop 10/01/16 at 15:40; Status DC Duloxetine HCl (Cymbalta) 30 mg DAILY PO Last administered on 09/27/16 07:35; Start 09/24/16 at 09:00; Stop 09/28/16 at 00:30; Status DC Mirtazapine (Remeron) 7.5 mg QHS PO Last administered on 10/01/16 20:28; Start 09/23/16 at 21:00 Quetiapine Fumarate (SEROquel) 12.5 mg DAILY PO Last administered on 09/27/16 07:36; Start 09/26/16 at 09:00; Stop 09/27/16 at 22:11; Status DC Warfarin Sodium (Coumadin) 4 mg 1X ONCE PO Last administered on 09/27/16 22: 47; Start 09/27/16 at 23:00; Stop 09/27/16 at 23:01; Status DC Quetiapine Fumarate (SEROquel) 12.5 mg TID PO Last administered on 09/28/16 20 :31; Start 09/28/16 at 09:00; Stop 09/28/16 at 21:01; Status DC Duloxetine HCl (Cymbalta) 60 mg DAILY PO Last administered on 10/01/16 08:58; Start 09/28/16 at 09:00 Quetiapine Fumarate (SEROquel) 12.5 mg BID@0900,1700 PO Last administered on 16:53; Start 09/29/16 at 09:00 Quetiapine Fumarate (SEROquel) 25 mg DAILY@1400 PO Last administered on 14:00; Start 09/29/16 at 14:00 Warfarin Sodium (Coumadin Per Pharmacy) 1 each PRN DAILY PRN MC SEE COMMENTS Last administered on 10/01/16 15:50; Start 10/01/16 at 15:45 Warfarin Sodium (Coumadin) 5 mg 1X WARF ONCE PO Last administered on 16:54; Start 10/01/16 at 16:00; Stop 10/01/16 at 16:01; Status DC Saliva Substitute (Biotene Dry Mouth) 1 toney PRN Q2HR PRN PO DRY MOUTH; Start at 16:15 Active Scripts Active Reported Citalopram Hbr (Citalopram Hydrobromide) 40 Mg Tablet 40 Mg PO DAILY Xanax (Alprazolam) 0.25 Mg Tablet 0.25 Mg PO PRN TID PRN Macrodantin (Nitrofurantoin Macrocrystal) 100 Mg Capsule 100 Mg PO BID 3 Days Culturelle (Lactobacillus Rhamnosus Gg) 1 Each Capsule 1 Each PO DAILY 2 Days Acetaminophen Er (Acetaminophen) 650 Mg Tablet.er 650 Mg PO PRN TID PRN Toviaz (Fesoterodine Fumarate) 4 Mg Tab.er.24h 4 Mg PO DAILY Systane Ultra 0.4-0.3% Eye Drp (Propylene Glycol/Peg 400) 10 Ml Drops 1 Drop OU PRN Q4HRS PRN Bisacodyl 10 Mg Supp.rect 10 Mg RC PRN DAILY PRN Coumadin (Warfarin Sodium) 6 Mg Tablet 6 Mg PO DAILY Senna Lax (Sennosides) 8.6 Mg Tablet 8.6 Mg PO HS Polyethylene Glycol 3350 17 Gm Powd.pack 0.5 Packet PO HS PRN Maalox Maximum Strength Susp (Mag Hydrox/Al Hydrox/Simeth) 355 Ml Oral.susp 15 Ml PO PRN TID PRN Acetaminophen 500 Mg Tablet 500 Mg PO PRN TID PRN Tramadol Hcl (Tramadol HCl) 50 Mg Tablet 50 Mg PO PRN Q6HRS PRN Synthroid (Levothyroxine Sodium) 88 Mcg Tablet 88 Mcg PO DAILYAC Melatonin 3 Mg Tablet 3 Mg PO HS Prevident 5000 (Sodium Fluoride) 100 Ml Gel..ml. 1 Toney DT DAILY Calcium Carbonate 500 Mg Tablet 500 Mg PO PRN TID PRN Milk Of Magnesia (Magnesium Hydroxide) 2,400 Mg/10 Ml Oral.susp 2,400 Mg PO PRN DAILY PRN Restasis (Cyclosporine) 1 Each Droperette 1 Each OU BID Losartan Potassium 100 Mg Tablet 100 Mg PO DAILY Sinemet 25-100 Mg Tablet (Carbidopa/Levodopa) 1 Each Tablet 1 Each PO BID Vitamin D (Cholecalciferol (Vitamin D3)) 5,000 Unit Tablet 5,000 Unit PO DAILY [sodium chloride 5%] Oint..gm. 1 Toney OU HS Pravastatin Sodium 20 Mg Tablet 20 Mg PO DAILY Atenolol 25 Mg Tablet 25 Mg PO DAILY Diagnosis: Problems: (1) Anxiety disorder (2) Dementia, vascular, with depression (3) Psychotic depression (4) Major depressive disorder, recurrent episode (5) Impulse control disorder ARIANE WASHBURN MD Oct 01, 2016 20:37
--- NOTE | 2016-10-01 21:40 | NUR ---
Behavior Intervention Response and Plan: BIRP Note: Behavior: Assumed Care of patient, patient located in Patient Room at shift change. Patient exhibited the following behavior Calm, Withdrawn, Cooperative. Brief assessment on rounds of vital signs, medication needs, lab studies, and pain. Treatment plan problems 1 and 2. Intervention: Patient assessed and the following interventions initiated safety checks 15 Minute Checks Cognitive Assessment , Head to toe Assessment , Medications. Response: After interactions and interventions patient responded in the following manner, Calm , Compliant ,Cooperative. Continue to assess behaviors and condition will continue to monitor throughout the shift as needed. Patient educated on ADL's, and hand hygiene. Plan: Continue to monitor Master Treatment Plan for patient's progress toward short term goals of Decreased Anxiety, Improved Mood, detention goals to return to previous living setting vs placement. Continue to assess patient for changes in above assessment. Monitor for medication needs, pain, and safety concerns. Hourly rounding performed to ensure safe environment.
[2016-10-01] MEDS ORDERED: DULO60CA6 PO (22:35)
[2016-10-01] MEDS ORDERED: MAGN400O7 PO (22:37)
[2016-10-01] MEDS ORDERED: METH29OI TP (22:38)
[2016-10-01] MEDS ORDERED: MIRT7.5T8 PO (22:40)
[2016-10-01] MEDS ORDERED: QUET25TA5 PO ×2 (22:43→22:46)
[2016-10-01] MEDS ORDERED: SALI44.32 MM (22:48)
--- NOTE | 2016-10-02 00:42 | PN ---
DATE: 09/30/2016 This late entry 09/30/2016 covers elements not covered in my initial note of 09/30/2016. SUBJECTIVE: I met with the patient evening of 09/30/2016. The patient was more confused morning of 09/30/2016, believe she might be living here forever and here. Repeatedly wanting to talk to her son. REVIEW OF SYSTEMS: Ambulation impaired with walker. No CV, , pulmonary, eye system symptoms on review. MENTAL STATUS EXAM: Reasonably oriented. Speech coherent, anxious, repetitive, abstraction fair, computation impaired, language function intact, attention span short. Mood and affect showing improvement. No active suicidal or homicidal ideation. IMPRESSION: Unchanged from initial note. PLAN: Continue psychotropics mentioned in my initial note, reviewed drug interactions, risk/benefit ratio favors no further change of now. Possible transition to assisted living on Wednesday in 2 days. MAN Ruben WASHBURN MD DR: MARCIAL/reynaldo JOB#: [id number] / [id number]
[2016-10-02] MEDS: LEVOTHYROXINE 88 MCG TABLET PO SCH (05:54)
[2016-10-02 05:59] VITALS: BP 143/58
[2016-10-02] MEDS ORDERED: WARFARIN 6 MG TABLET. PO ONE (07:30)
[2016-10-02] MEDS: OXYBUTYNIN CHLORIDE 5 MG TABLET PO SCH (08:31)
[2016-10-02] MEDS: DULoxetine HCL 60 MG CAPSULE.DR PO SCH (08:31)
[2016-10-02] MEDS: CARBIDOPA/LEVODOPA 25/100MG TABLET PO SCH (08:31)
[2016-10-02] MEDS: CHOLECALCIFEROL (VITAMIN D3) 1,000 UNIT TABLET PO SCH (08:31)
[2016-10-02] MEDS: QUEtiapine 25 MG TABLET. PO SCH (08:31)
[2016-10-02] MEDS: PRAVASTATIN 20 MG TABLET. PO SCH (08:31)
[2016-10-02 08:32] VITALS: BP 143/58
[2016-10-02] MEDS: cycloSPORINE 0.05% OPTH 1 DROP DROPERETTE OU SCH (08:32)
[2016-10-02] MEDS: LOSARTAN 50 MG TABLET. PO SCH (08:32)
[2016-10-02] MEDS: ATENOLOL 25 MG TABLET PO SCH (08:32)
--- NOTE | 2016-10-02 09:01 | NUR ---
[facility] Social Work Discharge Planning Form Patient Name CIERRA MOSS Admit Date: 09/22/16 DISCHARGE PLAN Discharge Destination: [facility] Skilled Transportation: Pt's sons to cloth picker 10/02/16 at 10:30-11:00 SPECIAL INSTRUCTIONS: PLEASE FAX DC SUMMARY TO FACILITY & PSYCHIATRY DISCHARGE TO FACILITY Facility: [facility]illed Address: [address] [place], [place] [id number] Contact Name: PCP: at facility w/in 10-12 days of dc Psychiatrist: Dr. Jaziel Morocho [facility] [address] [place] [id number] PHONE: [phone] FAX: [phone] FOLLOW UP APPOINTMENT SCHEDULED FOR November AT 8:30 & November AT 9:30. Currently placed on a cancelation list for possible earlier appointment. THERAPY: Fidelia Bertrand [address] [place] [address] PHONE: [phone] FOLLOW UP APPOINTMENT SCHEDULED FOR September AT 2:00-3:00 @ [facility] *Copies of dc summary will be provided by family.
--- NOTE | 2016-10-02 10:10 | PDOC ---
Exam Kj Demential Exam: Kj Note: Please also refer to the separate dictated note~for this date of service dictated separately.~Patient seen individually. Discussed the patient with Nursing staff reviewed the chart.~Reviewed interim history and current functioning. Reviewed vital signs,~Labs/ Radiology~and current medications noted below. Continue current treatment with the changes noted in the dictated addendum note Assessment: Vital Signs: Vital Signs Date Time Temp Pulse Resp B/P (MAP) Pulse Ox O2 Delivery O2 Flow Rate FiO2 10/02/16 08:32 62 143/58 10/02/16 05:59 97.8 16 95 09/27/16 16:16 Room Air I&O Intake and Output 10/02/16 06:59 Intake Total 1320 ml Balance 1320 ml Intake Oral 1320 ml Labs: Laboratory Tests Test 10/02/16 07:00 Prothrombin Time 10.2 SEC (9.4-11.4) Prothrombin Time INR 1.0 (0.9-1.1) Current Medications: Meds: Current Medications Acetaminophen (Tylenol) 650 mg PRN Q6HRS PRN PO PAIN / TEMP Last administered on 09/23/16 02:46; Start 09/22/16 at 21:15 Multi-Ingredient Ointment (Analgesic Houston) 1 toney PRN QID PRN TP MUSCLE PAIN; Start 09/22/16 at 21:15 Al Hydroxide/Mg Hydroxide (Mylanta Plus Xs) 15 ml PRN AFTMEALHC PRN PO DYSPEPSIA; Start 09/22/16 at 21:15; Status Cancel Magnesium Hydroxide (Milk Of Magnesia) 2,400 mg PRN QHS PRN PO CONSTIPATION; Start 09/22/16 at 21:15 Alprazolam (Xanax) 0.25 mg PRN TID PRN PO ANXIETY / AGITATION Last administered on 09/29/16 17:57; Start 09/22/16 at 22:15 Citalopram Hydrobromide (CeleXA) 40 mg DAILY PO Last administered on 09/23/16 08:02; Start 09/23/16 at 09:00; Stop 09/23/16 at 18:27; Status DC Acetaminophen (Tylenol) 500 mg PRN TID PRN PO PAIN / TEMP; Start 09/22/16 at 22 :15 Atenolol (Tenormin) 25 mg DAILY PO Last administered on 10/02/16 08:32; Start 09/23/16 at 09:00 Bisacodyl (Dulcolax Supp) 10 mg PRN DAILY PRN RC CONSTIPATION; Start 09/22/16 at 22:15 Calcium Carbonate/ Glycine (Tums) 500 mg PRN TID PRN PO HEARTBURN / GAS; Start 09/22/16 at 22:15 Carbidopa/Levodopa (Sinemet 25/100) 1 tab BID PO Last administered on 08:31; Start 09/23/16 at 09:00 Cyclosporine (Restasis) 1 drop BID OU Last administered on 10/02/16 08:32; Start 09/23/16 at 09:00 Levothyroxine Sodium (Synthroid) 88 mcg DAILYAC PO Last administered on 05:54; Start 09/23/16 at 07:30 Al Hydroxide/Mg Hydroxide (Mylanta Plus Xs) 15 ml PRN TID PRN PO INDIGESTION; Start 09/22/16 at 22:15 Polyethylene Glycol (miraLAX) 8.5 gm HS PO Last administered on 10/01/16 20:29 ; Start 09/23/16 at 21:00 Pravastatin Sodium (Pravachol) 20 mg DAILY PO Last administered on 10/02/16 08 :31; Start 09/23/16 at 09:00 Sennosides (Senna) 8.6 mg HS PO Last administered on 10/01/16 20:28; Start at 21:00 Tramadol HCl (Ultram) 50 mg PRN Q6HRS PRN PO PAIN; Start 09/22/16 at 22:15 Warfarin Sodium (Coumadin) 6 mg DAILY16 PO ; Start 09/23/16 at 16:00; Stop 09/23 at 16:14; Status DC Non-Formulary Medication 650 mg PRN TID PRN PO PAIN / TEMP; Start 09/22/16 at 22:15; Status UNV Vitamin D (Vitamin D3) 5,000 unit DAILY PO Last administered on 10/02/16 08:31 ; Start 09/23/16 at 09:00 Oxybutynin Chloride (Ditropan) 5 mg BID PO Last administered on 10/02/16 08:31 ; Start 09/23/16 at 09:00 Lactobacillus Rhamnosus (Culturelle) 1 cap DAILY PO Last administered on 08:03; Start 09/23/16 at 09:00; Stop 09/24/16 at 10:00; Status DC Losartan Potassium (Cozaar) 100 mg DAILY PO Last administered on 10/02/16 08: 32; Start 09/23/16 at 09:00 Non-Formulary Medication 2,400 mg PRN DAILY PRN PO CONSTIPATION; Start at 22:15; Status UNV Melatonin 3 mg HS PO Last administered on 10/01/16 20:28; Start 09/23/16 at 21 :00 Nitrofurantoin Macrocrystals (Macrobid) 100 mg BID PO Last administered on 09/25 19:40; Start 09/23/16 at 09:00; Stop 09/25/16 at 22:00; Status DC Artificial Tears (Artificial Tears) 1 drop PRN Q4HRS PRN OU DRY EYE Last administered on 09/30/16 20:22; Start 09/22/16 at 23:00 Non-Formulary Medication 1 toney DAILY DT ; Start 09/23/16 at 09:00; Status UNV Sodium Chloride (Kelly) 0.25 inch HS OU Last administered on 10/01/16 20:30; Start 09/23/16 at 21:00 Warfarin Sodium (Coumadin Per Physician) 1 each PRN DAILY PRN MC SEE COMMENTS; Start 09/22/16 at 23:00; Stop 10/01/16 at 15:40; Status DC Duloxetine HCl (Cymbalta) 30 mg DAILY PO Last administered on 09/27/16 07:35; Start 09/24/16 at 09:00; Stop 09/28/16 at 00:30; Status DC Mirtazapine (Remeron) 7.5 mg QHS PO Last administered on 10/01/16 20:28; Start 09/23/16 at 21:00 Quetiapine Fumarate (SEROquel) 12.5 mg DAILY PO Last administered on 09/27/16 07:36; Start 09/26/16 at 09:00; Stop 09/27/16 at 22:11; Status DC Warfarin Sodium (Coumadin) 4 mg 1X ONCE PO Last administered on 09/27/16 22: 47; Start 09/27/16 at 23:00; Stop 09/27/16 at 23:01; Status DC Quetiapine Fumarate (SEROquel) 12.5 mg TID PO Last administered on 09/28/16 20 :31; Start 09/28/16 at 09:00; Stop 09/28/16 at 21:01; Status DC Duloxetine HCl (Cymbalta) 60 mg DAILY PO Last administered on 10/02/16 08:31; Start 09/28/16 at 09:00 Quetiapine Fumarate (SEROquel) 12.5 mg BID@0900,1700 PO Last administered on 08:31; Start 09/29/16 at 09:00 Quetiapine Fumarate (SEROquel) 25 mg DAILY@1400 PO Last administered on 14:00; Start 09/29/16 at 14:00 Warfarin Sodium (Coumadin Per Pharmacy) 1 each PRN DAILY PRN MC SEE COMMENTS Last administered on 10/01/16 15:50; Start 10/01/16 at 15:45 Warfarin Sodium (Coumadin) 5 mg 1X WARF ONCE PO Last administered on 16:54; Start 10/01/16 at 16:00; Stop 10/01/16 at 16:01; Status DC Saliva Substitute (Biotene Dry Mouth) 1 toney PRN Q2HR PRN PO DRY MOUTH; Start at 16:15 Warfarin Sodium (Coumadin) 6 mg 1X ONCE PO Last administered on 10/02/16 08: 36; Start 10/02/16 at 07:30; Stop 10/02/16 at 07:31; Status DC Active Scripts Active Reported Biotene Oralbalance (Saliva Stimulant Agents Comb.2) 44.3 Ml Liquid 1 Toney MM PRN Q2HR PRN Seroquel (Quetiapine Fumarate) 25 Mg Tablet 25 Mg PO DAILY@1400 Seroquel (Quetiapine Fumarate) 25 Mg Tablet 12.5 Mg PO BID@0900,1700 Mirtazapine 7.5 Mg Tablet 7.5 Mg PO QHS Analgesic [place] (Methyl Salicylate/Menthol) 28 Gm Oint...g. 1 Toney TP PRN QID PRN Milk Of Magnesia (Magnesium Hydroxide) 400 Mg/5 Ml Oral.susp 2,400 Mg PO PRN QHS PRN Cymbalta (Duloxetine Hcl) 60 Mg Capsule.dr 60 Mg PO DAILY Acetaminophen Er (Acetaminophen) 650 Mg Tablet.er 650 Mg PO PRN TID PRN Toviaz (Fesoterodine Fumarate) 4 Mg Tab.er.24h 4 Mg PO DAILY Systane Ultra 0.4-0.3% Eye Drp (Propylene Glycol/Peg 400) 10 Ml Drops 1 Drop OU PRN Q4HRS PRN Bisacodyl 10 Mg Supp.rect 10 Mg RC PRN DAILY PRN Senna Lax (Sennosides) 8.6 Mg Tablet 8.6 Mg PO HS Polyethylene Glycol 3350 17 Gm Powd.pack 8.5 Gm PO HS PRN Maalox Maximum Strength Susp (Mag Hydrox/Al Hydrox/Simeth) 355 Ml Oral.susp 15 Ml PO PRN TID PRN Synthroid (Levothyroxine Sodium) 88 Mcg Tablet 88 Mcg PO DAILYAC Melatonin 3 Mg Tablet 3 Mg PO HS Calcium Carbonate 500 Mg Tablet 500 Mg PO PRN TID PRN Restasis (Cyclosporine) 1 Each Droperette 1 Each OU BID Losartan Potassium 100 Mg Tablet 100 Mg PO DAILY Sinemet 25-100 Mg Tablet (Carbidopa/Levodopa) 1 Each Tablet 1 Tab PO BID Vitamin D (Cholecalciferol (Vitamin D3)) 5,000 Unit Tablet 5,000 Unit PO DAILY [sodium chloride 5%] Oint..gm. 1 Toney OU HS Pravastatin Sodium 20 Mg Tablet 20 Mg PO DAILY Atenolol 25 Mg Tablet 25 Mg PO DAILY Diagnosis: Problems: (1) Impulse control disorder (2) Major depressive disorder, recurrent episode (3) Psychotic depression (4) Dementia, vascular, with depression (5) Anxiety disorder ARIANE WASHBURN MD Oct 02, 2016 10:10
--- NOTE | 2016-10-02 10:48 | NUR ---
Behavior Intervention Response and Plan: BIRP Note: Behavior: Assumed Care of patient, patient located in Patient Room at shift change. Patient exhibited the following behavior Interactive, Withdrawn, Compliant. Brief assessment on rounds of vital signs, medication needs, lab studies, and pain. Treatment plan problems . Intervention: Patient assessed and the following interventions initiated safety checks 15 Minute Checks Cognitive Assessment , Head to toe Assessment , Medications. Response: After interactions and interventions patient responded in the following manner, Withdrawn , Calm ,Cooperative. Continue to assess behaviors and condition will continue to monitor throughout the shift as needed. Patient educated on ADL's, and hand hygiene. Plan: Continue to monitor Master Treatment Plan for patient's progress toward short term goals of Improved Mood, No harm To self/ others, halfway goals to return to previous living setting vs placement. Continue to assess patient for changes in above assessment. Monitor for medication needs, pain, and safety concerns. Hourly rounding performed to ensure safe environment.
--- NOTE | 2016-10-02 10:50 | NUR ---
Patient reported to this nurse that she was interested in discontinuing her medications and start on hospice. Pt reported she wouldn't know how do to do it, but she expressed that she wanted to . Dr. Braun notified, no new orders, continue to monitor and plan to discharge- family will be taking her to a new psychiatrist.
--- NOTE | 2016-10-02 11:05 | NUR ---
Transition Record was faxed to follow-up provider with the following elements: Reason for admission, procedures, tests, principal diagnosis, pending studies, patient instructions, 31/08 contact information for unit, phone number to obtain pending test results, plan for follow-up care, physician follow-up, advanced directive information, and medication list with dose, duration and instructions. This information was included in the following documents: History and physical, lab results, study results, progress notes, social work planning form, DC instruction form, patient visit summary, and medication reconciliation form. Date & time record faxed: 10/02/16 @ 1000 Record faxed to: [facility] Record discussed with/ report given to: LUANN Merida
--- NOTE | 2016-10-02 18:46 | PN ---
DATE: 10/01/2016 This note covers elements not covered in my initial note of 10/01/2016. I met with the patient in the evening of 10/01/2016, at length. Staffed a treatment team meeting with the entire team morning of 10/02/2015. Overall, the patient seems to be doing better, still depressed, anxious, repetitive, but less somatically preoccupied. REVIEW OF SYSTEMS: Ambulation impaired with a walker. No CV, , pulmonary, eye, ENT system symptoms on review. MENTAL STATUS EXAM: Reasonably oriented. Speech is coherent, abstraction fair, computation impaired, language function intact. Mood and affect showing improvement. LABORATORY DATA: Reviewed. IMPRESSION: Unchanged from initial note. PLAN: Continue psychotropics mentioned in my initial note. Reviewed drug interactions, risk/benefit ratio favors no further change as of now. MAN Ruben WASHBURN MD DR: MARCAIL/reynaldo JOB#: [id number] / [id number]
--- NOTE | 2016-10-02 23:05 | DS ---
DATE OF DISCHARGE: 10/02/2016 DISCHARGE SUMMARY/PSYCHIATRIC PROGRESS NOTE REASON FOR ADMISSION: Please refer to the admission history for details. HISTORY OF PRESENT ILLNESS: Briefly, the patient is an 85-year-old female referred to us from [facility] by her primary care physician on account of worsening symptoms of depression, paranoia, and anxiety. She was being afraid to be left alone, had uncontrollable crying, had voiced vague suicidal ideation, wondered what is the point of living. SIGNIFICANT FINDING AND CLINICAL COURSE: Following admission, the patient was seen daily individually by myself, followed medically per Dr. Vizcaino/Dr. Javed. She remained extremely depressed, despondent, sad, crying, anxious, and paranoid initially. Adjustments were made in her psychotropics and she seemed to respond to a combination of Cymbalta 60 mg a day, Remeron 7.5 mg at bedtime, melatonin 3 mg at bedtime, Seroquel 12.5 mg b.i.d. and 25 mg at 1400 and Xanax p.r.n. Prior to discharge on 10/02/2016, I met with her in her room morning of 10/02/2016. REVIEW OF SYSTEMS: No CV, , pulmonary, eye, or ENT system symptoms on review. MENTAL STATUS EXAM: The patient is reasonably oriented. Speech coherent, abstraction fair, computation somewhat impaired, language function intact. Mood and affect improved. Denied suicidal ideation. No psychotic symptoms. She was cognitively fairly intact. LABORATORY DATA: Reviewed. FINAL DIAGNOSES: Major depressive disorder, recurrent; in partial remission; anxiety disorder, unspecified; impulse control disorder, unspecified. Rest of diagnoses unchanged from admission. DISCHARGE MEDICATIONS: Please refer to the [facility]AD. Outpatient psychiatric and medical followup at [facility] as arranged by the sonMahendra. Time for discharge day management greater than 30 minutes. This note covers elements, not covered in my initial note. ARIANE WASHBURN MD DR: MARCIAL/reynaldo JOB#: [id number] / [id number]
--- NOTE | 2016-10-03 03:40 | PN ---
DATE: 10/02/2016 This note covers elements not covered in my initial note of 10/02/2016. SUBJECTIVE: The patient was seen individually in the morning of 10/02/2016. I met with her in her room. Rest of the details of the visit are noted as part of the discharge summary. MAN Ruben WASHBURN MD DR: MARCIAL/reynaldo JOB#: [id number] / [id number]
== END 2016-10-02 11:06 | disposition home or self-care (01) | DRG 885 ==
LOC: GEROPSY 20:58
PROVIDERS: ADMIT Psychiatry & Neurology Psychiatry; ATTEND Psychiatry & Neurology Psychiatry
DX: F33.3 Major depressive disorder, recurrent, severe with psychotic symptoms (principal); E43 Unspecified severe protein-calorie malnutrition; F01.51 Vascular dementia, unspecified severity, with behavioral disturbance; I48.91 Unspecified atrial fibrillation; G20 Parkinson's disease; R45.851 Suicidal ideations; D64.9 Anemia, unspecified; F33.41 Major depressive disorder, recurrent, in partial remission; Z68.20 Body mass index [BMI] 20.0-20.9, adult; F41.9 Anxiety disorder, unspecified; I25.10 Atherosclerotic heart disease of native coronary artery without angina pectoris; I12.9 Hypertensive chronic kidney disease with stage 1 through stage 4 chronic kidney disease, or unspecified chronic kidney disease; N18.9 Chronic kidney disease, unspecified; Z66 Do not resuscitate; Z88.2 Allergy status to sulfonamides; Z88.1 Allergy status to other antibiotic agents; F63.9 Impulse disorder, unspecified; F42.9 Obsessive-compulsive disorder, unspecified; E78.5 Hyperlipidemia, unspecified; E03.9 Hypothyroidism, unspecified; R79.1 Abnormal coagulation profile; Z79.01 Long term (current) use of anticoagulants; Z79.899 Other long term (current) drug therapy; Z95.0 Presence of cardiac pacemaker; Z98.42 Cataract extraction status, left eye; Z98.41 Cataract extraction status, right eye
CPT/HCPCS: 36415; 80053; 80061; 81001; 82306; 83036; 83540; 83550; 83735; 84436; 84443; 84480; 85025; 85610; 86592; 86593; 97110; 97116; 97530; 97535